=== PATIENT | female | born 1990 | race Caucasian/White ===

== ENCOUNTER 2021-03-11 20:05 | Emergency (ER) | payer MEDICAID, SELFPAY ==
[2021-03-11 20:07] VITALS: BP 96/64; PULSE 118; RESP 16; TEMP 36.9; O2SAT 100; BMI 20.5
[2021-03-11 21:25] LABS: Basophils # 0.1 K/mm3 (0-0.2); Basophils % 0.7 % (0.1-2.0); Eosinophils # 0.2 K/mm3 (0.0-0.4); Eosinophils % 2.9 % (0.1-12.0); Hematocrit 41.9 % (37.0-47.0); Hemoglobin 13.7 g/dL (12.2-16.2); Lymphocytes # 2.8 K/mm3 (0.7-4.5); Lymphocytes % 34.2 % (10-50); Mean Corpuscular HGB Conc 32.6 g/dL (31.8-35.4); Mean Corpuscular Hemoglobin 27.8 pg (27.0-31.2); Mean Corpuscular Volume 85.4 fl (81-99); Mean Platelet Volume 8.8 fl (7.4-10.4); Monocytes # 0.3 K/mm3 (0.1-1.0); Monocytes % 3.9 % (1.7-9.3); Neutrophils # 4.7 K/mm3 (1.8-7.8); Neutrophils % 58.4 % (37.0-80.0); Platelet Count 402 K/mm3 (142-424); Red Blood Count 4.91 M/mm3 (4.20-5.40); Red Cell Distribution Width 15.7 % (11.5-17.5)
[2021-03-11 21:37] LABS: Chloride 87 mmol/L (98-107); Potassium 3.9 mmoL/L (3.5-5.1); Sodium 138 mmol/L (136-145)
[2021-03-11 21:38] LABS: Microscopic, Urine URINE MICROSCOPIC (MICROSCOPIC)
[2021-03-11 21:39] LABS: Blood Urea Nitrogen 47 mg/dl (7-17); Creatinine Clearance Estimated 53 mL/min (50-200); Estimated Glomerular Filt Rate 48 ml/min (>60); GFR (African American) 58 ML/MIN (>60)
[2021-03-11 21:40] LABS: Alanine Aminotransferase 152 U/L (12-78); Albumin/Globulin Ratio 0.8 (1.1-1.8); Alkaline Phosphatase 376 U/L (38-126); Anion Gap 19.9 mEq/L (5-15); Aspartate Amino Transferase 145 U/L (14-36); Bilirubin,Total 0.6 mg/dl (0.2-1.3); Calcium 9.9 mg/dl (8.4-10.2); Carbon Dioxide 35 mmol/L (22.0-30.0); Glucose 93 mg/dl (74-100)
[2021-03-11 21:42] LABS: Appearance,Urine CLEAR (Clear); Bilirubin,Urine Negative (Negative); Blood, Urine Negative (Negative); Glucose,Urine (UA) Negative (Negative); Ketones,Urine TRACE (Negative); Leukocyte Esterase,Urine TRACE (Negative); Nitrate,Urine Negative (Negative); Protein,Urine 1+ (Negative); Specific Gravity, Urine 1.015 (1.005-1.030); Urobilinogen,Urine 0.2 EU/dl (0.2)
[2021-03-11 21:43] LABS: Urine Pregnancy, HCG Qual. Negative (Negative)
[2021-03-11 21:45] LABS: Color,Urine Amber (Yellow)
[2021-03-11 21:57] LABS: Bacteria,Urine 1+ /lpf; Mucus,Urine 1+ /lpf; RBC,Urine Occasional #/hpf (0-3)
[2021-03-11 22:13] VITALS: BP 107/75; PULSE 90; O2SAT 95
--- NOTE | 2021-03-11 22:42 | HMH.EDGENADL ---
ED Disposition Clinical Impression: Dehydration, Elevated liver enzymes Disposition: Home, Self-Care Condition on Discharge: Fair Additional Instructions: See your physician on Tuesday at [facility] as scheduled. A copy of your labs is being provided to you for follow-up. Referrals: Rojas Madden [Primary Care Provider] - - Critical Care Critical Care Time: No Attestation: On 03/11/21, the high probability of a clinically significant, sudden or life threatening deterioration of the following system(s) required my full and direct attention, intervention and personal management. The time I documented below is in addition to time spent performing reported procedures but includes the following listed in this critical care notation. Medical Decision Making - Medical Records Medical records reviewed: Yes: I reviewed the patient's medical records. MR Comment: Reviewed patient's most recent labs at [facility]. BUN and creatinine are elevated compared to her baseline as are liver enzymes. Chloride is low from baseline. - Rajendra Inquiry Pt receiving controlled substance: Yes Rajendra was queried for this patient: Yes Risks and benefits of using a controlled substance: were not discussed with pt by me Vital Signs: 03/11/21 20:07 03/11/21 22:13 Temperature 98.4 F Temperature Source Oral Pulse Rate 90 Pulse Rate [Right] 118 H Respiratory Rate 16 Blood Pressure 107/75 L Blood Pressure [Right Arm] 96/64 L Blood Pressure Mean [Right Arm] 74 Blood Pressure Source Automatic Cuff Blood Pressure Position Sitting 02 Sat by Pulse Oximetry 100 95 Oxygen Delivery Method Room Air - Lab Data Lab Results 03/11/21 21:00: Urine Color [place], Urine Appearance Clear, Urine pH 8.0, Ur Specific [place] 1.015, Urine Protein 1+, Urine Glucose (UA) Negative, Urine Ketones Trace, Urine Blood Negative, Urine Nitrate Negative, Urine Bilirubin Negative, Urine Urobilinogen 0.2, Ur Leukocyte Esterase Trace, Urine RBC Occasional, Urine WBC 3-5, Urine Bacteria 1+, Urine Mucus 1+ 03/11/21 21:00: WBC 8.0, RBC 4.91, Hgb 13.7, Hct 41.9, MCV 85.4, MCH 27.8, MCHC 32.6, RDW 15.7, Plt Count 402, MPV 8.8, Neut % (Auto) 58.4, Lymph % (Auto) 34.2, [place] % (Auto) 3.9, Eos % (Auto) 2.9, Baso % (Auto) 0.7, Neut # (Auto) 4.7, Lymph # (Auto) 2.8, [place] # (Auto) 0.3, Eos # (Auto) 0.2, Baso # (Auto) 0.1 03/11/21 21:00: Urine HCG, Qual Negative 03/11/21 21:00: Sodium 138, Potassium 3.9, Chloride 87 L, Carbon Dioxide 35 H, Anion Gap 19.9 H, BUN 47 H, Creatinine 1.30 H, Estimated Creat Clear 53, Estimated GFR 48 L, Est GFR ( Amer) 58 L, Glucose 93, Calcium 9.9, Total Bilirubin 0.6, AST 145 H, ALT 152 H, Alkaline Phosphatase 376 H, Total Protein 11.0 H, Albumin 5.0, Globulin 6.0 H, Albumin/Globulin Ratio 0.8 L 03/11/21 21:00: Lipase 290 03/11/21 21:00: Phosphorus 6.0 H, Magnesium 2.3 Result diagrams: 03/11/21 21:00 03/11/21 21:00 Orders (Tests/Meds): ED MEDICATIONS Generic Name Dose Route Start Last Admin Trade Name Freq PRN Reason Stop Dose Admin Sodium Chloride 1,000 mls @ 999 mls/hr 03/11/21 21:30 03/11/21 21:21 Sod Chlor 0.9% 1000ml Bag IV 03/11/21 22:30 999 mls/hr .Q1H1M EPIFANIO Administration Discontinued Medications Generic Name Dose Route Start Last Admin Trade Name Freq PRN Reason Stop Dose Admin Morphine Sulfate 2 mg 03/11/21 22:19 03/11/21 22:21 Morphine 2mg/Ml Syringe IV 03/11/21 22:20 2 mg ONCE ONE Administration Ondansetron HCl 4 mg 03/11/21 21:20 03/11/21 21:21 Ondansetron 4mg/2ml Vial IV 03/11/21 21:21 4 mg ONCE ONE Administration Sodium Chloride 1,000 ml 03/11/21 22:51 03/11/21 22:53 Sodium Chloride 0.9% 1000ml Bag IV 03/11/21 22:52 1,000 ml BOLUS ONE Administration - Reevaluation(s) Time: 00:50 Reevaluation #1: States she feels better and is ready to be discharged General Adult HPI - General Chief complaint: Nausea/Vomiting/Diarrhea State
[2021-03-11 23:06] LABS: Lipase 290 U/L (23-300); Magnesium 2.3 mg/dl (1.6-2.3)
[2021-03-12 00:55] VITALS: BP 128/67; PULSE 72; RESP 16; TEMP 37.2; O2SAT 99
== END 2021-03-12 00:58 | disposition home or self-care (01) ==
PROVIDERS: Emergency Provider Emergency Medicine; PCP Internal Medicine
DX: E86.0 Dehydration (principal); R94.5 Abnormal results of liver function studies; M54.5 Low back pain
CPT/HCPCS: 80053; 81001; 81025; 83690; 83735; 84100; 85025; 96365; 96366; 96375; 99283; J2405

== ENCOUNTER 2021-06-13 18:29 | Inpatient (IN) | payer MEDICAID, SELFPAY ==
[2021-06-13 18:30] VITALS: BP 124/69; PULSE 149; RESP 20; TEMP 37.4; O2SAT 96; BMI 20.3
--- NOTE | 2021-06-13 18:52 | HMH.EDGENADL ---
ED Disposition <KarinaHalie - Last Filed: 06/13/21 20:09> Condition on Discharge: Fair - Critical Care Critical Care Time: No <Denice Melton - Last Filed: 06/13/21 22:55> Clinical Impression: Intractable abdominal pain Disposition: Admitted As Inpatient Referrals: Rojas Madden [Primary Care Provider] - Attestation: On 06/13/21, the high probability of a clinically significant, sudden or life threatening deterioration of the following system(s) required my full and direct attention, intervention and personal management. The time I documented below is in addition to time spent performing reported procedures but includes the following listed in this critical care notation. Medical Decision Making - Medical Records Medical records reviewed: Yes: I reviewed the patient's medical records. - Rajendra Inquiry Pt receiving controlled substance: No - Lab Data Result diagrams: 06/13/21 18:55 06/13/21 18:55 <KarinaHalie - Last Filed: 06/13/21 20:09> - Lab Data Result diagrams: 06/13/21 18:55 06/13/21 18:55 <Denice Melton - Last Filed: 06/13/21 22:55> Vital Signs: 06/13/21 18:30 Temperature 99.4 F Temperature Source Oral Pulse Rate [Right Radial] 149 H Respiratory Rate 20 Blood Pressure [Right Arm] 124/69 Blood Pressure Mean [Right Arm] 87 Blood Pressure Source [Right Arm] Automatic Cuff Blood Pressure Position [Right Arm] Sitting 02 Sat by Pulse Oximetry 96 Oxygen Delivery Method Room Air - Lab Data Lab Results 06/13/21 18:55: WBC 6.6, RBC 3.38 L, Hgb 8.9 L, Hct 27.0 L, MCV 80.0 L, MCH 26.4 L, MCHC 33.0, RDW 15.7, Plt Count 137 L, MPV 8.8, Neut % (Auto) 92.3 H, Lymph % (Auto) 4.1 L, [place] % (Auto) 1.7, Eos % (Auto) 0.6, Baso % (Auto) 1.3, Neut # (Auto) 6.1, Lymph # (Auto) 0.3 L, [place] # (Auto) 0.1, Eos # (Auto) 0.0, Baso # (Auto) 0.1, Total Counted 100, Neutrophils % (Manual) 96 H, Lymphocytes % (Manual) 2 L, Monocytes % (Manual) 2, Platelet Estimate Slight decrease, Hypochromasia 1+, Microcytosis 1+ 06/13/21 18:55: Sodium 133 L, Potassium 3.1 L, Chloride 94 L, Carbon Dioxide 26, Anion Gap 16.1 H, BUN 29 H, Creatinine 1.20 H, Estimated Creat Clear 56, Estimated GFR 53 L, Est GFR ( Amer) 64, Glucose 97, Calcium 8.6, Total Bilirubin 0.6, AST 131 H, ALT 113 H, Alkaline Phosphatase 314 H, Total Protein 7.9 D, Albumin 4.2, Globulin 3.7 H, Albumin/Globulin Ratio 1.1 06/13/21 18:55: Serum HCG, Qual Negative 06/13/21 18:55: Lipase 75 06/13/21 19:40: Lactate 3.1 H 06/13/21 22:15: Urine Color Yellow, Urine Appearance Clear, Urine pH 8.5, Ur Specific [place] 1.010, Urine Protein Trace, Urine Glucose (UA) Negative, Urine Ketones Negative, Urine Blood Negative, Urine Nitrate Negative, Urine Bilirubin Negative, Urine Urobilinogen 0.2, Ur Leukocyte Esterase Negative, Urine WBC 5-10, Ur Renal Epithelial Cell 5-10, Amorphous Sediment Trace, Urine Mucus 1+ Orders (Tests/Meds): ED MEDICATIONS Generic Name Dose Route Start Last Admin Trade Name Freq PRN Reason Stop Dose Admin Lactated Ringer's 1,000 mls @ 999 mls/hr 06/13/21 19:30 Lactated Ringer's 1000 Ml Bag IV 06/13/21 20:30 .Q1H1M EPIFANIO Discontinued Medications Generic Name Dose Route Start Last Admin Trade Name Freq PRN Reason Stop Dose Admin Hydromorphone HCl 1 mg 06/13/21 22:41 Hydromorphone 2mg/Ml Syringe IV 06/13/21 22:42 ONCE ONE Iopamidol 75 ml 06/13/21 21:00 06/13/21 21:01 Iopamidol-370 (76%);100ml Bottle IV 06/13/21 21:01 75 ml ONCE ONE Administration Morphine Sulfate 2 mg 06/13/21 19:41 06/13/21 19:52 Morphine 2mg/Ml Syringe IV 06/13/21 19:42 2 mg ONCE ONE Administration Ondansetron HCl 4 mg 06/13/21 19:41 06/13/21 19:53 Ondansetron 4mg/2ml Vial IV 06/13/21 19:42 4 mg ONCE ONE Administration Potassium Chloride 40 meq 06/13/21 22:37 Potassium Chloride 20meq Tab PO 06/13/21 22:38 ONCE ONE Promethazine HCl 12.5 mg 06/13/21 22:41 Promethazine Hcl 25mg/Ml 1ml Via
--- NOTE | 2021-06-13 19:24 | CT_ITS ---
PROCEDURE INFORMATION: Exam: CT Abdomen And Pelvis With Contrast Exam date and time: 06/13/2021 7:24 PM Age: 30 years old Clinical indication: Abdominal pain; Generalized; Prior surgery; Surgery date: 6+ months; Surgery type: Large bowel removed and part of small bowel removed due to ulcerative colitis and a blood clot. Rectum removed gb; Additional info: Abdominal pain both flanks and generalized abdomen pain TECHNIQUE: Imaging protocol: Computed tomography of the abdomen and pelvis with contrast. Total images: 293 Radiation optimization: All CT scans at this facility use at least one of these dose optimization techniques: automated exposure control; mA and/or kV adjustment per patient size (includes targeted exams where dose is matched to clinical indication); or iterative reconstruction. Contrast material: ISOVUE; Contrast volume: 293 ml; Contrast route: IV; COMPARISON: No relevant prior studies available. FINDINGS: Tubes, catheters and devices: Central venous catheter in place with its tip in the right atrium. Lungs: Bandlike atelectasis in the right lung base. Heart: Heart size normal. Mediastinal space: The visualized distal esophagus is largely contracted without gross abnormality. Liver: Mild hepatomegaly measuring 19.3 cm craniocaudal. Normal contour. No mass lesions. Gallbladder and bile ducts: Prior cholecystectomy with no significant dilatation of the common bile duct. Pancreas: Normal. No inflammatory changes or ductal dilation. Spleen: Normal. No splenomegaly. Adrenal glands: Normal. No adrenal mass. Kidneys and ureters: No acute abnormalities. No hydronephrosis or hydroureter. No urinary tract stones are identified. Stomach and bowel: The stomach is largely contracted without gross abnormality. The small bowel is nondilated with no gross abnormality. Right lower quadrant ileostomy without gross complication. Prior colectomy. Appendix: The appendix is surgically absent. Intraperitoneal space: Minimal amount of intrapelvic free fluid, within physiologic range for a young woman. No free air. Vasculature: No acute process. No abdominal aortic aneurysm. Lymph nodes: Mildly enlarged lymph nodes in the left pericaval and aortocaval distribution measuring up to 8 mm short axis. These are nonspecific. Urinary bladder: Unremarkable as visualized. Reproductive: Unremarkable as visualized. Bones/joints: No acute osseous abnormalities. Soft tissues: Small subcutaneous soft tissue nodules in the left lower quadrant probably representing injection granulomata incidentally noted. IMPRESSION: 1. No definite acute process. 2. Prior colectomy. Right lower quadrant ileostomy without gross complication. No evidence of bowel obstruction or perforation. 3. Mild hepatomegaly. 4. Slightly enlarged periaortic nodes which are nonspecific in nature. 5. Minimal amount of intrapelvic free fluid, within physiologic range for a young woman. No free air. 6. Additional nonemergent findings detailed above.
[2021-06-13 19:25] LABS: Basophils # 0.1 K/mm3 (0-0.2); Basophils % 1.3 % (0.1-2.0); Eosinophils % 0.6 % (0.1-12.0); Hemoglobin 8.9 g/dL (12.2-16.2); Lymphocytes # 0.3 K/mm3 (0.7-4.5); Lymphocytes % 4.1 % (10-50); Mean Corpuscular Hemoglobin 26.4 pg (27.0-31.2); Mean Platelet Volume 8.8 fl (7.4-10.4); Monocytes # 0.1 K/mm3 (0.1-1.0); Monocytes % 1.7 % (1.7-9.3); Neutrophils # 6.1 K/mm3 (1.8-7.8); Neutrophils % 92.3 % (37.0-80.0); Platelet Count 137 K/mm3 (142-424); Red Blood Count 3.38 M/mm3 (4.20-5.40); Red Cell Distribution Width 15.7 % (11.5-17.5); White Blood Count 6.6 K/mm3 (4.8-10.8)
[2021-06-13 19:26] LABS: Chloride 94 mmol/L (98-107); Potassium 3.1 mmoL/L (3.5-5.1); Sodium 133 mmol/L (136-145)
[2021-06-13 19:28] LABS: Alanine Aminotransferase 113 U/L (12-78); Aspartate Amino Transferase 131 U/L (14-36); Blood Urea Nitrogen 29 mg/dl (7-17); Creatinine Clearance Estimated 56 mL/min (50-200); Estimated Glomerular Filt Rate 53 ml/min (>60); GFR (African American) 64 ML/MIN (>60)
[2021-06-13 19:29] LABS: Albumin Level 4.2 g/dl (3.5-5.0); Albumin/Globulin Ratio 1.1 (1.1-1.8); Alkaline Phosphatase 314 U/L (38-126); Anion Gap 16.1 mEq/L (5-15); Bilirubin,Total 0.6 mg/dl (0.2-1.3); Calcium 8.6 mg/dl (8.4-10.2); Carbon Dioxide 26 mmol/L (22.0-30.0); Globulin 3.7 g/dL (1.3-3.2); Glucose 97 mg/dl (74-100); Total Protein,Serum 7.9 g/dl (6.3-8.2)
[2021-06-13 19:35] LABS: MANUAL DIFFERENTIAL MANUAL DIFFERENTIAL (MANUAL DIFF)
[2021-06-13 19:44] LABS: HCG Qualitative, Serum Negative (Negative)
[2021-06-13 20:04] LABS: Lymphocytes % 2 % (10-50); Monocytes % 2 % (2-9); Neutrophils % 96 % (42-76); Total Cells Counted 100
[2021-06-13 20:05] LABS: Hypochromasia 1+; Microcytosis 1+; Platelet Estimate Slight Decrease
[2021-06-13 20:13] LABS: Lactic Acid 3.1 mmol/L (0.7-2.1)
[2021-06-13 20:30] LABS: Lipase 75 U/L (23-300)
--- NOTE | 2021-06-13 21:43 | PC.NURSE ---
sent patient to bathroom to obtain urine specimen. patient states unable to void. aware.
[2021-06-13 22:20] LABS: Microscopic, Urine URINE MICROSCOPIC (MICROSCOPIC)
[2021-06-13 22:23] LABS: Appearance,Urine CLEAR (Clear); Bilirubin,Urine Negative (Negative); Blood, Urine Negative (Negative); Color,Urine YELLOW (Yellow); Glucose,Urine (UA) Negative (Negative); Ketones,Urine Negative (Negative); Leukocyte Esterase,Urine Negative (Negative); Nitrate,Urine Negative (Negative); PH,Urine 8.5 (5.0-8.5); Protein,Urine TRACE (Negative); Urobilinogen,Urine 0.2 EU/dl (0.2)
[2021-06-13 22:25] LABS: Amorphous Sediment,Urine Trace /lpf; Mucus,Urine 1+ /lpf
[2021-06-13 22:49] LABS: Reflex Lactic Add Lactic Reflex
[2021-06-13 22:58] LABS: Coronavirus 19, PCR Not Detected (NotDetected); Influenza A, PCR Not Detected (NotDetected); Influenza B, PCR Not Detected (NotDetected)
[2021-06-13 23:02] LABS: Lactic Acid Follow Up (RFLX 1) 1.7 mmol/L (0.7-2.1)
[2021-06-13 23:04] VITALS: BMI 21.4
[2021-06-13 23:29] VITALS: BP 125/79; PULSE 101; RESP 18; TEMP 36.8; O2SAT 98
--- NOTE | 2021-06-13 23:56 | PC.NURSE ---
PT ARRIVED TO FLOOR VIA STRETCHER FROM ED W/STAFF [id number]
[2021-06-14] VITALS (7 sets, daily range): BP systolic 92–110; BP diastolic 60–65; PULSE 91–110; RESP 15–18; TEMP 36.8–37.7; O2SAT 95–100
--- NOTE | 2021-06-14 07:57 | P.HP_ITS ---
*Admission Date: 06/13/21 [facility] History *Have you ever received a pneumonia vaccine?: Yes *Have you received a flu vaccine this season?: Yes Other Surgeries: Yes: Cholecystectomy, Colon Resection, Colostomy, Other - *Social History Alcohol Intake: never *Occupational Status:: unemployed Household Members: family *Travel in the last 8 weeks: None Family Hx:: Cancer, Diabetes Meds Allergies Allergy/AdvReac Type Severity Reaction Status Date / Time ceftriaxone [From Rocephin] Allergy Verified 03/11/21 21:17 Exam Vital signs and Labs for Last 24 Hours: Temp Pulse Resp BP Pulse Ox 98.9 F 91 H 16 110/65 100 06/14/21 04:00 06/14/21 04:00 06/14/21 04:00 06/14/21 04:00 06/14/21 04:00 Laboratory Results - last 24 hr 06/13/21 18:55: WBC 6.6, RBC 3.38 L, Hgb 8.9 L, Hct 27.0 L, MCV 80.0 L, MCH 26.4 L, MCHC 33.0, RDW 15.7, Plt Count 137 L, MPV 8.8, Neut % (Auto) 92.3 H, Lymph % (Auto) 4.1 L, [place] % (Auto) 1.7, Eos % (Auto) 0.6, Baso % (Auto) 1.3, Neut # (Auto) 6.1, Lymph # (Auto) 0.3 L, [place] # (Auto) 0.1, Eos # (Auto) 0.0, Baso # (Auto) 0.1, Total Counted 100, Neutrophils % (Manual) 96 H, Lymphocytes % (Manual) 2 L, Monocytes % (Manual) 2, Platelet Estimate Slight decrease, Hypochromasia 1+, Microcytosis 1+ 06/13/21 18:55: Sodium 133 L, Potassium 3.1 L, Chloride 94 L, Carbon Dioxide 26, Anion Gap 16.1 H, BUN 29 H, Creatinine 1.20 H, Estimated Creat Clear 56, Estimated GFR 53 L, Est GFR ( Amer) 64, Glucose 97, Calcium 8.6, Total Bilirubin 0.6, AST 131 H, ALT 113 H, Alkaline Phosphatase 314 H, Total Protein 7.9 D, Albumin 4.2, Globulin 3.7 H, Albumin/Globulin Ratio 1.1 06/13/21 18:55: Serum HCG, Qual Negative 06/13/21 18:55: Lipase 75 06/13/21 19:40: Lactate 3.1 H 06/13/21 22:15: Urine Color Yellow, Urine Appearance Clear, Urine pH 8.5, Ur Specific [place] 1.010, Urine Protein Trace, Urine Glucose (UA) Negative, Urine Ketones Negative, Urine Blood Negative, Urine Nitrate Negative, Urine Bilirubin Negative, Urine Urobilinogen 0.2, Ur Leukocyte Esterase Negative, Urine WBC 5- 10, Ur Renal Epithelial Cell 5-10, Amorphous Sediment Trace, Urine Mucus 1+ 06/13/21 22:44: Lactate 1.7 06/13/21 22:54: SARS-CoV-2 (PCR) Not detected, Influenza A Untype (PCR) Not detected, Influenza Type B (PCR) Not detected I & O for Last 24 hours: Intake & Output 06/11/21 06/12/21 06/13/21 06/14/21 11:59 11:59 11:59 11:59 Intake Total 2250 / 2250 Output Total 0 / 0 Balance 2250 / 2250 Weight 121 lb
--- NOTE | 2021-06-14 09:19 | HMH.HP ---
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 She describes the pain as a dull pounding pain. It increased in intensity. She had vomiting. With oral intake she would develop bloating. Patient also noticed decreased output from her ileostomy. When pain became so severe she presented to the emergency department. Patient also reports having fever of 103. Patient recently was discharged from [facility] on 06/08 after a 5 day stay to rule out fungemia. Patient is on TPN and IV fluids at home due to her short gut syndrome. Patient was also recently found to have pancreatic tail lesion and is being referred to surgical oncology at This morning patient reports pain is better although not resolved. Per records patient takes oral morphine, loperamide, and iron supplement. This morning patient reports increase in output through ileostomy. [facility] History I have reviewed the patient's past medical history: Yes *Have you ever received a pneumonia vaccine?: Yes *Have you received a flu vaccine this season?: Yes Other Surgeries: Yes: Cholecystectomy, Colon Resection, Colostomy, Other - *Social History Smoking Status: Current every day smoker Alcohol Intake: never *Occupational Status:: unemployed Household Members: family *Travel in the last 8 weeks: None Family Hx:: Cancer, Diabetes Review of Systems - Constitutional Reports anorexia, Reports fever(s), Reports lack of energy, Denies body ache(s), Denies chills - Eyes Denies change in vision - ENT Denies abnormal hearing, Denies bleeding gums, Denies difficulty swallowing - *Cardiovascular Denies chest pain, Denies chest pain at rest, Denies shortness of breath with activity - *Respiratory Denies change in phlegm color, Denies chest congestion, Denies cough - *Gastrointestinal Reports abdominal pain, Reports bloating, Reports change in bowel habits, Reports change in stools, Reports heartburn, Denies belching, Denies coffee ground vomit - *Genitourinary Denies painful urination - *Musculoskeletal Denies joint pain Meds Allergies Allergy/AdvReac Type Severity Reaction Status Date / Time ceftriaxone [From Rocephin] Allergy Verified 03/11/21 21:17 Exam Vital signs and Labs for Last 24 Hours: Temp Pulse Resp BP Pulse Ox 98.9 F 91 H 16 110/65 100 06/14/21 04:00 06/14/21 04:00 06/14/21 04:00 06/14/21 04:00 06/14/21 04:00 Laboratory Results - last 24 hr 06/13/21 18:55: WBC 6.6, RBC 3.38 L, Hgb 8.9 L, Hct 27.0 L, MCV 80.0 L, MCH 26.4 L, MCHC 33.0, RDW 15.7, Plt Count 137 L, MPV 8.8, Neut % (Auto) 92.3 H, Lymph % (Auto) 4.1 L, [place] % (Auto) 1.7, Eos % (Auto) 0.6, Baso % (Auto) 1.3, Neut # (Auto) 6.1, Lymph # (Auto) 0.3 L, [place] # (Auto) 0.1, Eos # (Auto) 0.0, Baso # (Auto) 0.1, Total Counted 100, Neutrophils % (Manual) 96 H, Lymphocytes % (Manual) 2 L, Monocytes % (Manual) 2, Platelet Estimate Slight decrease, Hypochromasia 1+, Microcytosis 1+ 06/13/21 18:55: Sodium 133 L, Potassium 3.1 L, Chloride 94 L, Carbon Dioxide 26, Anion Gap 16.1 H, BUN 29 H, Creatinine 1.20 H, Estimated Creat Clear 56, Estimated GFR 53 L, Est GFR ( Amer) 64, Glucose 97, Calcium 8.6, Total Bilirubin 0.6, AST 131 H, ALT 113 H, Alkaline Phosphatase 314 H, Total Protein 7.9 D, Albumin 4.2, Globulin 3.7 H, Albumin/Globulin Ratio 1.1 06/13/21 18:55: Serum HCG, Qual Negative 06/13/21 18:55: Lipase 75 06/13/21 19:40: Lactate 3.1 H 06/13/21 22:15: Urine Color Yellow, Urine Appearance Clear, Urine pH 8.5, Ur Specific [place] 1.010, Urine Protein Trace, Urine Glucose (UA) Negative, Urine Ketones N
--- NOTE | 2021-06-14 09:31 | HMH.GSCON ---
*Admission Date: 06/13/21 *Reason for consult:: Intractable abdominal pain *History of present illness: Patient is a 30-year-old female who previously resided in [place] with a history of ulcerative colitis who underwent total colectomy in 2018. 1 year later she had issue with ischemic bowel requiring resection and has subsequently had a short gut syndrome requiring home TPN for the past 2 years. She does have a right-sided port in place and had a recent hospitalization at [facility] with fungal infection secondary to her line. In November of this year she underwent completion proctectomy at [facility] due to residual ulcerative colitis. She states that she did have a CT scan around that time which revealed a pancreatic lesion. This week, on 06/10/2021 she had undergone MRI of the pancreas at [facility] which reveals lesion in the tail of the pancreas concerning for neoplasm. Of note, the patient did have a history of pancreatitis when she had UC several years ago. She had developed onset of epigastric and left upper quadrant pain with some left flank pain described as a dull pounding sensation. She describes the pain as similar to previous bout of acute pancreatitis. She did have some vomiting as well as bloating and noted decreased output from her ileostomy. She was found to have a fever of 103. She was seen and evaluated in the emergency department. Laboratory studies showed some elevation of liver function tests and BUN and creatinine. CT scan with IV contrast revealed no acute findings. She was admitted for inpatient management due to her intractable pain and surgical consultation was obtained. Review of Systems - Review of Systems Review of systems:: pertinent systems reviewed and negative unless documented below - *Neurologic Denies abnormal hearing [facility] History I have reviewed the patient's past medical history: Yes *Have you ever received a pneumonia vaccine?: Yes *Have you received a flu vaccine this season?: Yes Other Surgeries: Yes: Cholecystectomy, Colon Resection, Colostomy, Other - *Social History Smoking Status: Smoker, status unknown Alcohol Intake: never *Occupational Status:: unemployed Household Members: family *Travel in the last 8 weeks: None Family Hx:: Cancer, Diabetes Meds Home Medications Medication Instructions Recorded Confirmed Type Enoxaparin Sodium [Lovenox 60 mg SQ BID 06/14/21 06/14/21 History 60mg/0.6mL syringe] Fat Emulsions [Liposyn 20% 250mL 250 ml IV QODHS 06/14/21 06/14/21 History bottle] Ferrous Sulfate [Ferrous Sulfate 325 mg PO DAILY 06/14/21 06/14/21 History 325mg Tablet] Gabapentin [Gabapentin 250mg/5ml 250 mg PO TID 06/14/21 06/14/21 History Oral Soln] Loperamide HCl [Anti-Diarrheal] 1 mg PO QIDP PRN 06/14/21 06/14/21 History Magnesium Oxide [Magnesium] 400 mg PO DAILY 06/14/21 06/14/21 History Morphine Sulfate [Morphine Sulfate 0.5 ml PO QIDP PRN 06/14/21 06/14/21 History 20mg/5ml Oral Soln (Roxanol)] Multivit-Minerals/Folic Acid 200 mcg PO DAILY 06/14/21 06/14/21 History [Multivitamin Gummies] Mvi, Adult No.1 with Vit K 10 ml IM DAILY 06/14/21 06/14/21 History [Multiple Vitamin Inj 10mL Vial] Naloxone HCl [Narcan] 1 spray NOSTRIL-B NEEDED PRN 06/14/21 06/14/21 History Potassium Chloride [Pot Chlor 20 40 meq PO BID 06/14/21 06/14/21 History mEq Packet] Allergies Allergy/AdvReac Type Severity Reaction Status Date / Time ceftriaxone [From Rocephin] Allergy Verified 03/11/21 21:17 Exam Vital signs and Labs for Last 24 Hours: Temp Pulse Resp BP Pulse Ox 100 F H 110 H 18 92/60 L 96 06/14/21 08:00 06/14/21 08:00 06/14/21 08:00 06/14/21 08:00 06/14/21 08:00 Laboratory Results - last 24 hr 06/13/21 18:55: WBC 6.6, RBC 3.38 L, Hgb 8.9 L, Hct 27.0 L, MCV 80.0 L, MCH 26.4 L, MCHC 33.0, RDW 15.7, Plt Count 137 L, MPV 8.8, Neut % (Auto) 92.3 H, Lymph % (Auto) 4.1 L, Mo
[2021-06-14 10:21] LABS: Basophils % 0.3 % (0.1-2.0); Eosinophils % 0.6 % (0.1-12.0); Hematocrit 23.6 % (37.0-47.0); Lymphocytes # 0.9 K/mm3 (0.7-4.5); Lymphocytes % 12.7 % (10-50); Mean Corpuscular HGB Conc 32.6 g/dL (31.8-35.4); Mean Corpuscular Hemoglobin 26.1 pg (27.0-31.2); Mean Corpuscular Volume 80.3 fl (81-99); Mean Platelet Volume 9.2 fl (7.4-10.4); Monocytes # 0.3 K/mm3 (0.1-1.0); Monocytes % 3.7 % (1.7-9.3); Neutrophils # 5.9 K/mm3 (1.8-7.8); Neutrophils % 82.7 % (37.0-80.0); Platelet Count 140 K/mm3 (142-424); Red Blood Count 2.94 M/mm3 (4.20-5.40); White Blood Count 7.2 K/mm3 (4.8-10.8)
[2021-06-14 10:23] LABS: Chloride 97 mmol/L (98-107)
[2021-06-14 10:24] LABS: Potassium 3.2 mmoL/L (3.5-5.1); Sodium 133 mmol/L (136-145)
[2021-06-14 10:26] LABS: Alanine Aminotransferase 84 U/L (12-78); Alkaline Phosphatase 236 U/L (38-126); Amylase 78 U/L (30-110); Anion Gap 11.2 mEq/L (5-15); Aspartate Amino Transferase 76 U/L (14-36); Bilirubin,Total 0.4 mg/dl (0.2-1.3); Blood Urea Nitrogen 24 mg/dl (7-17); Carbon Dioxide 28 mmol/L (22.0-30.0); Creatinine Clearance Estimated 71 mL/min (50-200); Estimated Glomerular Filt Rate 65 ml/min (>60); GFR (African American) 79 ML/MIN (>60)
[2021-06-14 10:27] LABS: Albumin Level 3.5 g/dl (3.5-5.0); Calcium 7.9 mg/dl (8.4-10.2); Globulin 3.4 g/dL (1.3-3.2); Glucose 88 mg/dl (74-100); Total Protein,Serum 6.9 g/dl (6.3-8.2)
[2021-06-14 10:30] LABS: Hemoglobin 7.7 g/dL (12.2-16.2)
--- NOTE | 2021-06-14 15:17 | P.CONPHA_ITS ---
[facility] Pharmacy VTE Monitoring - Patient Demographics Admission date: 06/14/21 Report Date: 06/14/21 Time: 15:17 Allergies/Adverse Reactions: Patient Allergies ceftriaxone [From Rocephin] Allergy (Verified 03/11/21 21:17) Height: 1.6 m Weight: 54.885 kg Patient Problems: Current Active Problems Elevated liver enzymes (Acute) Intractable abdominal pain (Acute) Abdominal pain, epigastric (Acute) Abdominal pain, left upper quadrant (Acute) Pancreatic mass (Acute) S/P total colectomy (Acute) Ileostomy in place (Acute) Hypokalemia (Acute) - VTE Risk Labs: VTE Related Lab Results Hgb 7.7 g/dL (12.2-16.2) L D 06/14/21 10:01 Hct 23.6 % (37.0-47.0) L 06/14/21 10:01 Plt Count 140 K/mm3 (142-424) L 06/14/21 10:01 BUN 24 mg/dl (7-17) H 06/14/21 10:01 Creatinine 1.00 mg/dl (0.52-1.04) 06/14/21 10:01 Estimated Creat Clear 71 mL/min (50-200) 06/14/21 10:01 Was VTE Risk Assessment Performed: Yes VTE Score: 4 VTE Risk Level: Low Risk - Prophylaxis Types of VTE Prophylaxis: Pharmacological Location of Applied Device: Not Applicable Pharmacologic Type: Enoxaparin (LOVENOX ORDERED)
--- NOTE | 2021-06-14 21:25 | PC.NURSE ---
REPORT RECEIVED FROM TANESHA OROZCO. PT ARRIVED TO THE UNIT PER BED. PT ORIENTED TO ROOM AND CALL LIGHT WITHIN REACH
[2021-06-14 22:21] LABS: Adenovirus F 40/41, stool Not Detected (NotDetected); Astrovirus Not Detected (NotDetected); Campylobacter Not Detected (NotDetected); Clostridium Difficile A/B, PCR Not Detected (NotDetected); Cryptosporidium Not Detected (NotDetected); Cyclospora Cayetanesis Not Detected (NotDetected); Entamoeba histolytica Not Detected (NotDetected); Enteroaggregative E coli Not Detected (NotDetected); Enteropathogenic E coli Not Detected (NotDetected); Enterotoxigenic E coli Not Detected (NotDetected); Giardia lamblia Not Detected (NotDetected); Norovirus Not Detected (NotDetected); Plesimonas Shigalloides, PCR Not Detected (NotDetected); Rotavirus A Not Detected (NotDetected); Salmonella, PCR Not Detected (NotDetected); Sapovirus Not Detected (NotDetected); Shiga-like toxin E coli Not Detected (NotDetected); Shigella Enterovasive E coli Not Detected (NotDetected); Vibrio Cholerae Not Detected (NotDetected); Vibrio, PCR Not Detected (NotDetected); Yersinia Entercolitica, PCR Not Detected (NotDetected)
[2021-06-15 04:00] VITALS: BP 90/50; PULSE 73; RESP 16; TEMP 36.8; O2SAT 96
[2021-06-15 04:15] VITALS: O2SAT 96
[2021-06-15 05:53] LABS: Eosinophils # 0.2 K/mm3 (0.0-0.4); Hemoglobin 7.7 g/dL (12.2-16.2); Monocytes # 0.3 K/mm3 (0.1-1.0); Neutrophils # 3.4 K/mm3 (1.8-7.8); Red Cell Distribution Width 15.9 % (11.5-17.5)
[2021-06-15 06:01] LABS: Basophils % 0.4 % (0.1-2.0); Eosinophils % 3.2 % (0.1-12.0); Hematocrit 23.9 % (37.0-47.0); Lymphocytes # 1.4 K/mm3 (0.7-4.5); Lymphocytes % 26.1 % (10-50); Mean Corpuscular Hemoglobin 26.1 pg (27.0-31.2); Mean Corpuscular Volume 81.5 fl (81-99); Mean Platelet Volume 8.8 fl (7.4-10.4); Monocytes % 5.6 % (1.7-9.3); Neutrophils % 64.7 % (37.0-80.0); Platelet Count 160 K/mm3 (142-424); Red Blood Count 2.94 M/mm3 (4.20-5.40); White Blood Count 5.2 K/mm3 (4.8-10.8)
[2021-06-15 06:12] LABS: Chloride 99 mmol/L (98-107); Potassium 3.7 mmoL/L (3.5-5.1); Sodium 134 mmol/L (136-145)
[2021-06-15 06:14] LABS: Blood Urea Nitrogen 22 mg/dl (7-17); Creatinine Clearance Estimated 79 mL/min (50-200); Estimated Glomerular Filt Rate 74 ml/min (>60); GFR (African American) 89 ML/MIN (>60)
--- NOTE | 2021-06-15 06:14 | HMH.ACPN2 ---
Internal Medicine - PN: Subj *Date: 06/15/21 *Time: 06:14 Interval history: Patient reports mild improvement in abdominal pain. She became nauseous with fluids. Ileostomy output has increased. Exam Vital signs and Labs for Last 24 Hours: Temp Pulse Resp BP Pulse Ox 98.2 F 73 16 90/50 L 96 06/15/21 04:00 06/15/21 04:00 06/15/21 04:00 06/15/21 04:00 06/15/21 04:15 Laboratory Results - last 24 hr 06/14/21 10:01: Amylase 78 06/14/21 10:01: WBC 7.2, RBC 2.94 L, Hgb 7.7 L D, Hct 23.6 L, MCV 80.3 L, MCH 26.1 L, MCHC 32.6, RDW 16.0, Plt Count 140 L, MPV 9.2, Neut % (Auto) 82.7 H, Lymph % (Auto) 12.7, [place] % (Auto) 3.7, Eos % (Auto) 0.6, Baso % (Auto) 0.3, Neut # (Auto) 5.9, Lymph # (Auto) 0.9, [place] # (Auto) 0.3, Eos # (Auto) 0.0, Baso # (Auto) 0.0 06/14/21 10:01: Sodium 133 L, Potassium 3.2 L, Chloride 97 L, Carbon Dioxide 28, Anion Gap 11.2, BUN 24 H, Creatinine 1.00, Estimated Creat Clear 71, Estimated GFR 65, Est GFR ( Amer) 79 D, Glucose 88, Calcium 7.9 L, Total Bilirubin 0.4, AST 76 H D, ALT 84 H D, Alkaline Phosphatase 236 H, Total Protein 6.9, Albumin 3.5 D, Globulin 3.4 H, Albumin/Globulin Ratio 1.0 L 06/14/21 22:00: Stl Aeromonas (PCR) Not detected, Stl C. cayetanensis PCR Not detected, Stool Rotavirus (PCR) Not detected, Stl Adenov F 40/41 PCR Not detected, Stool Astrovirus (PCR) Not detected, Stool Campylobacter PCR Not detected, Stl C.difficile Tox PCR Not detected, Stool Cryptosporidium PCR Not detected, Stl E.coli Shiga Tox PCR Not detected, Stool E coli O157 PCR Not detected, Stl Enterotoxigenic E PCR Not detected, Stool EPEC (PCR) Not detected, Stool EAEC (PCR) Not detected, Stl E. histolytica PCR Not detected, Stool Giardia Lamblia PCR Not detected, Stool Salmonella PCR Not detected, Stool Sapovirus (PCR) Not detected, Stl P. shigelloides PCR Not detected, Stl Shigella/EIEC PCR Not detected, St Y.enterocolitica PCR Not detected, Stool Vibrio (PCR) Not detected, Stl Vibrio cholerae PCR Not detected, Stl Norovirus GI/GII PCR Not detected 06/15/21 05:24: WBC 5.2 D, RBC 2.94 L, Hgb 7.7 L, Hct 23.9 L, MCV 81.5, MCH 26.1 L, MCHC 32.0, RDW 15.9, Plt Count 160, MPV 8.8, Neut % (Auto) 64.7, Lymph % (Auto) 26.1, [place] % (Auto) 5.6, Eos % (Auto) 3.2, Baso % (Auto) 0.4, Neut # (Auto) 3.4, Lymph # (Auto) 1.4, [place] # (Auto) 0.3, Eos # (Auto) 0.2, Baso # (Auto) 0.0 I & O for Last 24 hours: Intake & Output 06/12/21 06/13/21 06/14/21 06/15/21 11:59 11:59 11:59 11:59 Intake Total 2250 / 2250 300 / 300 Output Total 0 / 0 125 / 125 Balance 2250 / 2250 175 / 175 Weight 121 lb Microbiology Reports for the Last 24 Hours: Microbiology 06/13/21 22:15 Urine,Clean Catch Urine Culture - Preliminary NO GROWTH AFTER 24 HOURS Narrative: Patient is in no distress. Mildly pale. Oropharynx is moist. Lungs are clear. Heart has a regular rate and rhythm. Abdomen is soft with mild epigastric tenderness. Assessment and Plan (1) Abdominal pain, epigastric Status: Acute Category: Medical Code(s): R10.13 - Epigastric pain (2) Abdominal pain, left upper quadrant Status: Acute Category: Medical Code(s): R10.12 - Left upper quadrant pain (3) Pancreatic mass Status: Acute Category: Medical Code(s): K86.89 - Other specified diseases of pancreas (4) Elevated liver enzymes Status: Acute Category: Medical Code(s): R74.8 - Abnormal levels of other serum enzymes (5) S/P total colectomy Status: Acute Category: Surgical Code(s): Z90.49 - Acquired absence of other specified parts of digestive tract (6) Ileostomy in place Status: Acute Category: Medical Code(s): Z93.2 - Ileostomy status (7) Hypokalemia Status: Acute Category: Medical Code(s): E87.6 - Hypokalemia - Assessment and plan all Dx Assessment and Plan for all problems:: 1. Patient's anemia of chronic disease is stable. 2. Abdominal pain is improving. 3. DC Martinez cath
[2021-06-15 06:15] LABS: Alanine Aminotransferase 66 U/L (12-78); Albumin Level 3.5 g/dl (3.5-5.0); Alkaline Phosphatase 222 U/L (38-126); Anion Gap 10.7 mEq/L (5-15); Aspartate Amino Transferase 54 U/L (14-36); Bilirubin,Total 0.5 mg/dl (0.2-1.3); Calcium 8.4 mg/dl (8.4-10.2); Carbon Dioxide 28 mmol/L (22.0-30.0); Globulin 3.5 g/dL (1.3-3.2); Glucose 73 mg/dl (74-100)
--- NOTE | 2021-06-15 06:17 | HMH.DCSUM ---
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 She describes the pain as a dull pounding pain. It increased in intensity. She had vomiting. With oral intake she would develop bloating. Patient also noticed decreased output from her ileostomy. When pain became so severe she presented to the emergency department. Patient also reports having fever of 103. Patient recently was discharged from [facility] on 06/08 after a 5 day stay to rule out fungemia. Patient is on TPN and IV fluids at home due to her short gut syndrome. Patient was also recently found to have pancreatic tail lesion and is being referred to surgical oncology at This morning patient reports pain is better although not resolved. Per records patient takes oral morphine, loperamide, and iron supplement. This morning patient reports increase in output through ileostomy. Hospital Course Hospital Course: Patient was admitted for abdominal pain. She was ordered Dilaudid half milligram every 2 hours initially and once pain became better controlled transition to every 4 hours. The following morning of admission patient's diet was advanced to clear liquids. Patient was able to tolerate small amounts with some mild nausea but no increase in abdominal pain. Patient did not have any recurrence of bloating and her ileostomy output improved. Due to the complex nature of the patient's GI issues Dr. Hill was consulted for opinion on source of patient's abdominal pain. Patient has been identified as having a pancreatic tail mass. There is no blood in ileostomy output. Diarrhea PCR panel was performed and was negative. By the patient's abdominal pain had improved. Elevated liver function tests which were present on admission were resolving. Patient is chronically anemic and hemoglobin did drop slightly, likely from dilution. On June 15 patient was stable and improving. She was discharged home where she can resume TPN. There were no changes in her home medications Objective Vital signs: Temp Pulse Resp BP Pulse Ox 98.2 F 73 16 90/50 L 96 06/15/21 04:00 06/15/21 04:00 06/15/21 04:00 06/15/21 04:00 06/15/21 04:15 Results Labs on day of discharge: Labs from last 24 hours 06/15/21 06/15/21 06/14/21 05:24 05:24 22:00 WBC 5.2 D RBC 2.94 L Hgb 7.7 L Hct 23.9 L MCV 81.5 MCH 26.1 L MCHC 32.0 RDW 15.9 Plt Count 160 MPV 8.8 Neut % (Auto) 64.7 Lymph % (Auto) 26.1 [place] % (Auto) 5.6 Eos % (Auto) 3.2 Baso % (Auto) 0.4 Neut # (Auto) 3.4 Lymph # (Auto) 1.4 [place] # (Auto) 0.3 Eos # (Auto) 0.2 Baso # (Auto) 0.0 Sodium 134 L Potassium 3.7 Chloride 99 Carbon Dioxide 28 Anion Gap 10.7 BUN 22 H Creatinine 0.90 Estimated Creat Clear 79 Estimated GFR 74 Est GFR ( Amer) 89 Glucose Calcium Total Bilirubin 0.5 AST 54 H D ALT 66 Alkaline Phosphatase 222 H Total Protein 7.0 Albumin 3.5 Globulin 3.5 H Albumin/Globulin Ratio 1.0 L Amylase Stl Aeromonas (PCR) Not detected Stl C. cayetanensis PCR Not detected Stool Rotavirus (PCR) Not detected Stl Adenov F 40/41 PCR Not detected Stool Astrovirus (PCR) Not detected Stool Campylobacter PCR Not detected Stl C.difficile Tox PCR Not detected Stool Cryptosporidium PCR Not detected Stl E.coli Shiga Tox PCR Not detected Stool E coli O157 PCR Not detected Stl Enterotoxigenic E PCR Not detected Stool EPEC (PCR) Not detected Stool EAEC (PCR)
[2021-06-15 08:00] VITALS: BP 93/52; PULSE 70; RESP 16; TEMP 36.8; O2SAT 100
== END 2021-06-15 09:48 | disposition home or self-care (01) | DRG 440 ==
LOC: ER 19:06 → 2ND 22:55 → OB 06-14 20:27
PROVIDERS: Emergency Medicine; Surgery; Admitting Provider Family Medicine; Emergency Provider Emergency Medicine; PCP Internal Medicine; Visit Provider Family Medicine
DX: R10.9 Unspecified abdominal pain (principal); K86.89 Other specified diseases of pancreas; R10.13 Epigastric pain; R10.12 Left upper quadrant pain; Z93.2 Ileostomy status; E87.6 Hypokalemia; D64.9 Anemia, unspecified; Z90.49 Acquired absence of other specified parts of digestive tract; Z79.899 Other long term (current) drug therapy
CPT/HCPCS: 36415; 74177; 80053; 81001; 82150; 83605; 83690; 84703; 85007; 85025; 87086; 87507; 96365; 96366; 96375; 99283; C9803; J1642; J2405; Q9967; U0003; U0005

== ENCOUNTER → 2021-11-11 16:19 | Outpatient (CLI) | payer MEDICAID, SELFPAY ==
[2021-11-11 16:41] LABS: Basophils # 0.1 K/mm3 (0-0.2); Basophils % 0.9 % (0.1-2.0); Eosinophils # 0.3 K/mm3 (0.0-0.4); Eosinophils % 4.9 % (0.1-12.0); Hematocrit 31.6 % (37.0-47.0); Hemoglobin 10.3 g/dL (12.2-16.2); Lymphocytes # 2.2 K/mm3 (0.7-4.5); Lymphocytes % 42.4 % (10-50); Mean Corpuscular HGB Conc 32.4 g/dL (31.8-35.4); Mean Corpuscular Hemoglobin 26.4 pg (27.0-31.2); Mean Corpuscular Volume 81.4 fl (81-99); Mean Platelet Volume 8.8 fl (7.4-10.4); Monocytes # 0.2 K/mm3 (0.1-1.0); Monocytes % 3.7 % (1.7-9.3); Neutrophils # 2.5 K/mm3 (1.8-7.8); Neutrophils % 48.1 % (37.0-80.0); Platelet Count 216 K/mm3 (142-424); Red Blood Count 3.89 M/mm3 (4.20-5.40); Red Cell Distribution Width 19.4 % (11.5-17.5); White Blood Count 5.2 K/mm3 (4.8-10.8)
== END ==
PROVIDERS: Visit Provider Internal Medicine
DX: G89.28 Other chronic postprocedural pain (principal); B96.89 Other specified bacterial agents as the cause of diseases classified elsewhere
CPT/HCPCS: 85025

== ENCOUNTER → 2021-11-13 15:10 | Outpatient (CLI) | payer MEDICAID, SELFPAY ==
[2021-11-13 15:40] LABS: Basophils # 0.1 K/mm3 (0-0.2); Basophils % 1.9 % (0.1-2.0); Eosinophils # 0.1 K/mm3 (0.0-0.4); Eosinophils % 2.3 % (0.1-12.0); Hematocrit 36.6 % (37.0-47.0); Hemoglobin 11.9 g/dL (12.2-16.2); Lymphocytes # 2.3 K/mm3 (0.7-4.5); Lymphocytes % 39.1 % (10-50); Mean Corpuscular HGB Conc 32.6 g/dL (31.8-35.4); Mean Corpuscular Hemoglobin 26.1 pg (27.0-31.2); Mean Platelet Volume 9.3 fl (7.4-10.4); Monocytes # 0.3 K/mm3 (0.1-1.0); Monocytes % 4.4 % (1.7-9.3); Neutrophils # 3.2 K/mm3 (1.8-7.8); Neutrophils % 54.1 % (37.0-80.0); Platelet Count 267 K/mm3 (142-424); Red Blood Count 4.57 M/mm3 (4.20-5.40); White Blood Count 5.9 K/mm3 (4.8-10.8)
[2021-11-13 15:56] LABS: Potassium 3.8 mmoL/L (3.5-5.1)
[2021-11-13 15:59] LABS: Alanine Aminotransferase 69 U/L (12-78); Alkaline Phosphatase 406 U/L (38-126); Aspartate Amino Transferase 110 U/L (14-36); Bilirubin,Direct 0.2 mg/dl (0.0-0.4); Bilirubin,Indirect 0.6 mg/dL (0.0-0.9); Bilirubin,Total 0.8 mg/dl (0.2-1.3); Bilirubin,Unconjugated 0.6 mg/dL (0.0-1.1); Blood Urea Nitrogen 36 mg/dl (7-17); Estimated Glomerular Filt Rate 84 ml/min (>60); GFR (African American) 102 ML/MIN (>60); Magnesium 1.8 mg/dl (1.6-2.3)
[2021-11-13 16:00] LABS: Albumin Level 4.6 g/dl (3.5-5.0); Total Protein,Serum 9.3 g/dl (6.3-8.2)
[2021-11-13 16:16] LABS: C-Reactive Protein 0.4 mg/L (0-4)
== END ==
PROVIDERS: Visit Provider Internal Medicine
DX: K91.2 Postsurgical malabsorption, not elsewhere classified (principal); I26.90 Septic pulmonary embolism without acute cor pulmonale; B96.89 Other specified bacterial agents as the cause of diseases classified elsewhere
CPT/HCPCS: 80076; 82565; 83735; 84132; 84520; 85025; 86140

== ENCOUNTER → 2021-12-15 11:39 | Outpatient (CLI) | payer MEDICAID, SELFPAY ==
[2021-12-15 12:07] LABS: Basophils # 0.1 K/mm3 (0-0.2); Basophils % 1.8 % (0.1-2.0); Eosinophils # 0.2 K/mm3 (0.0-0.4); Eosinophils % 3.1 % (0.1-12.0); Hematocrit 31.1 % (37.0-47.0); Lymphocytes # 2.1 K/mm3 (0.7-4.5); Lymphocytes % 43.5 % (10-50); Mean Corpuscular HGB Conc 32.2 g/dL (31.8-35.4); Mean Corpuscular Hemoglobin 26.3 pg (27.0-31.2); Mean Corpuscular Volume 81.7 fl (81-99); Mean Platelet Volume 9.2 fl (7.4-10.4); Monocytes # 0.2 K/mm3 (0.1-1.0); Monocytes % 4.9 % (1.7-9.3); Neutrophils # 2.3 K/mm3 (1.8-7.8); Neutrophils % 46.7 % (37.0-80.0); Platelet Count 321 K/mm3 (142-424); Red Blood Count 3.81 M/mm3 (4.20-5.40); Red Cell Distribution Width 17.5 % (11.5-17.5); White Blood Count 4.8 K/mm3 (4.8-10.8)
[2021-12-15 12:14] LABS: Blood Urea Nitrogen 25 mg/dl (7-17); Estimated Glomerular Filt Rate 117 ml/min (>60); GFR (African American) 141 ML/MIN (>60)
[2021-12-15 12:15] LABS: Alanine Aminotransferase 38 U/L (12-78); Alkaline Phosphatase 284 U/L (38-126); Aspartate Amino Transferase 44 U/L (14-36); Bilirubin,Direct 0.2 mg/dl (0.0-0.4); Bilirubin,Indirect 0.5 mg/dL (0.0-0.9); Bilirubin,Total 0.7 mg/dl (0.2-1.3); Bilirubin,Unconjugated 0.4 mg/dL (0.0-1.1); Total Protein,Serum 7.9 g/dl (6.3-8.2)
[2021-12-15 12:21] LABS: C-Reactive Protein 1.2 mg/L (0-4)
== END ==
PROVIDERS: Physician Assistant Surgical; PCP Internal Medicine; Visit Provider Internal Medicine
DX: G89.28 Other chronic postprocedural pain (principal); B96.89 Other specified bacterial agents as the cause of diseases classified elsewhere
CPT/HCPCS: 80076; 82565; 84520; 85025; 86140

== ENCOUNTER → 2021-12-22 14:19 | Outpatient (CLI) | payer MEDICAID, SELFPAY ==
[2021-12-22 14:44] LABS: Basophils # 0.1 K/mm3 (0-0.2); Basophils % 1.3 % (0.1-2.0); Eosinophils # 0.1 K/mm3 (0.0-0.4); Eosinophils % 1.5 % (0.1-12.0); Hematocrit 33.7 % (37.0-47.0); Hemoglobin 10.5 g/dL (12.2-16.2); Lymphocytes # 2.1 K/mm3 (0.7-4.5); Lymphocytes % 41.1 % (10-50); Mean Corpuscular HGB Conc 31.2 g/dL (31.8-35.4); Mean Corpuscular Hemoglobin 25.8 pg (27.0-31.2); Mean Corpuscular Volume 82.8 fl (81-99); Mean Platelet Volume 8.5 fl (7.4-10.4); Monocytes # 0.2 K/mm3 (0.1-1.0); Monocytes % 3.7 % (1.7-9.3); Neutrophils # 2.7 K/mm3 (1.8-7.8); Neutrophils % 52.5 % (37.0-80.0); Platelet Count 390 K/mm3 (142-424); Red Blood Count 4.07 M/mm3 (4.20-5.40); Red Cell Distribution Width 16.8 % (11.5-17.5); White Blood Count 5.2 K/mm3 (4.8-10.8)
[2021-12-22 14:54] LABS: Alanine Aminotransferase 54 U/L (12-78); Aspartate Amino Transferase 71 U/L (14-36); Bilirubin,Unconjugated 0.4 mg/dL (0.0-1.1); Blood Urea Nitrogen 25 mg/dl (7-17); Estimated Glomerular Filt Rate 84 ml/min (>60); GFR (African American) 101 ML/MIN (>60)
[2021-12-22 14:55] LABS: Albumin Level 4.8 g/dl (3.5-5.0); Alkaline Phosphatase 306 U/L (38-126); Bilirubin,Direct 0.2 mg/dl (0.0-0.4); Bilirubin,Indirect 0.4 mg/dL (0.0-0.9); Bilirubin,Total 0.6 mg/dl (0.2-1.3); Total Protein,Serum 9.9 g/dl (6.3-8.2)
[2021-12-23 14:57] LABS: Alanine Aminotransferase 53 U/L (12-78); Albumin Level 4.5 g/dl (3.5-5.0); Alkaline Phosphatase 317 U/L (38-126); Anion Gap 15.4 mEq/L (5-15); Aspartate Amino Transferase 67 U/L (14-36); Bilirubin,Total 0.3 mg/dl (0.2-1.3); Blood Urea Nitrogen 26 mg/dl (7-17); Calcium 9.6 mg/dl (8.4-10.2); Carbon Dioxide 37 mmol/L (22.0-30.0); Chloride 89 mmol/L (98-107); Estimated Glomerular Filt Rate 84 ml/min (>60); GFR (African American) 101 ML/MIN (>60); Globulin 4.6 g/dL (1.3-3.2); Glucose 96 mg/dl (74-100); Magnesium 1.9 mg/dl (1.6-2.3); Potassium 3.4 mmoL/L (3.5-5.1); Sodium 138 mmol/L (136-145); Total Protein,Serum 9.1 g/dl (6.3-8.2); Triglycerides 181 mg/dl (30-150)
== END ==
PROVIDERS: Internal Medicine Gastroenterology; PCP Internal Medicine; Visit Provider Internal Medicine
DX: K81.2 Acute cholecystitis with chronic cholecystitis (principal); K51.90 Ulcerative colitis, unspecified, without complications
CPT/HCPCS: 80053; 80076; 82565; 83735; 84100; 84478; 84520; 85025; 86140

== ENCOUNTER → 2021-12-30 15:58 | Outpatient (CLI) | payer MEDICAID, SELFPAY ==
[2021-12-30 17:14] LABS: Basophils % 0.4 % (0.1-2.0); Eosinophils # 0.1 K/mm3 (0.0-0.4); Eosinophils % 2.8 % (0.1-12.0); Hematocrit 31.5 % (37.0-47.0); Hemoglobin 10.5 g/dL (12.2-16.2); Lymphocytes # 1.8 K/mm3 (0.7-4.5); Lymphocytes % 39.7 % (10-50); Mean Corpuscular HGB Conc 33.4 g/dL (31.8-35.4); Mean Corpuscular Hemoglobin 25.2 pg (27.0-31.2); Mean Corpuscular Volume 75.5 fl (81-99); Mean Platelet Volume 8.3 fl (7.4-10.4); Monocytes # 0.3 K/mm3 (0.1-1.0); Monocytes % 6.8 % (1.7-9.3); Neutrophils # 2.3 K/mm3 (1.8-7.8); Neutrophils % 50.2 % (37.0-80.0); Platelet Count 274 K/mm3 (142-424); Red Blood Count 4.17 M/mm3 (4.20-5.40); Red Cell Distribution Width 14.6 % (11.5-17.5); White Blood Count 4.5 K/mm3 (4.8-10.8)
[2021-12-30 17:34] LABS: Alanine Aminotransferase 44 U/L (12-78); Albumin Level 4.5 g/dl (3.5-5.0); Alkaline Phosphatase 254 U/L (38-126); Aspartate Amino Transferase 57 U/L (14-36); Bilirubin,Total 0.4 mg/dl (0.2-1.3); Blood Urea Nitrogen 29 mg/dl (7-17); Calcium 9.2 mg/dl (8.4-10.2); Chloride 85 mmol/L (98-107); Estimated Glomerular Filt Rate 98 ml/min (>60); GFR (African American) 118 ML/MIN (>60); Globulin 4.3 g/dL (1.3-3.2); Glucose 81 mg/dl (74-100); Magnesium 1.9 mg/dl (1.6-2.3); Phosphorous 3.7 mg/dl (2.5-4.5); Sodium 139 mmol/L (136-145); Total Protein,Serum 8.8 g/dl (6.3-8.2); Triglycerides 96 mg/dl (30-150)
[2021-12-30 17:40] LABS: Anion Gap 17.9 mEq/L (5-15); Carbon Dioxide 39 mmol/L (22.0-30.0)
[2021-12-30 17:55] LABS: Potassium 2.9 mmoL/L (3.5-5.1)
== END ==
PROVIDERS: Physician Assistant Surgical; PCP Internal Medicine; Visit Provider Internal Medicine
DX: E87.6 Hypokalemia; K51.90 Ulcerative colitis, unspecified, without complications; D64.9 Anemia, unspecified; D72.829 Elevated white blood cell count, unspecified; Z90.49 Acquired absence of other specified parts of digestive tract; Z93.2 Ileostomy status; Z79.899 Other long term (current) drug therapy
CPT/HCPCS: 80053; 83735; 84100; 84478; 85025

== ENCOUNTER → 2022-01-05 15:02 | Outpatient (CLI) | payer MEDICAID, SELFPAY ==
[2022-01-05 15:17] LABS: Basophils # 0.1 K/mm3 (0-0.2); Basophils % 1.7 % (0.1-2.0); Eosinophils # 0.1 K/mm3 (0.0-0.4); Eosinophils % 1.5 % (0.1-12.0); Hemoglobin 10.8 g/dL (12.2-16.2); Lymphocytes # 2.3 K/mm3 (0.7-4.5); Lymphocytes % 40.2 % (10-50); Mean Corpuscular HGB Conc 31.9 g/dL (31.8-35.4); Mean Corpuscular Hemoglobin 25.8 pg (27.0-31.2); Monocytes # 0.3 K/mm3 (0.1-1.0); Monocytes % 4.3 % (1.7-9.3); Neutrophils % 52.4 % (37.0-80.0); Platelet Count 279 K/mm3 (142-424); Red Cell Distribution Width 15.6 % (11.5-17.5); White Blood Count 5.8 K/mm3 (4.8-10.8)
[2022-01-05 15:28] LABS: Chloride 91 mmol/L (98-107); Sodium 136 mmol/L (136-145)
[2022-01-05 15:29] LABS: Potassium 3.5 mmoL/L (3.5-5.1)
[2022-01-05 15:31] LABS: Alanine Aminotransferase 68 U/L (12-78); Alkaline Phosphatase 257 U/L (38-126); Anion Gap 13.5 mEq/L (5-15); Aspartate Amino Transferase 75 U/L (14-36); Bilirubin,Total 0.7 mg/dl (0.2-1.3); Blood Urea Nitrogen 27 mg/dl (7-17); Carbon Dioxide 35 mmol/L (22.0-30.0); Estimated Glomerular Filt Rate 117 ml/min (>60); GFR (African American) 141 ML/MIN (>60); Phosphorous 4.2 mg/dl (2.5-4.5)
[2022-01-05 15:32] LABS: Albumin Level 4.6 g/dl (3.5-5.0); Albumin/Globulin Ratio 1.1 (1.1-1.8); Calcium 9.9 mg/dl (8.4-10.2); Globulin 4.1 g/dL (1.3-3.2); Glucose 109 mg/dl (74-100); Magnesium 1.7 mg/dl (1.6-2.3); Total Protein,Serum 8.7 g/dl (6.3-8.2); Triglycerides 109 mg/dl (30-150)
== END ==
PROVIDERS: Physician Assistant Surgical; PCP Internal Medicine; Visit Provider Internal Medicine
DX: K81.2 Acute cholecystitis with chronic cholecystitis (principal); K51.90 Ulcerative colitis, unspecified, without complications
CPT/HCPCS: 80053; 83735; 84100; 84478; 85025

== ENCOUNTER → 2022-01-13 15:11 | Outpatient (CLI) | payer MEDICAID, SELFPAY ==
[2022-01-13 16:36] LABS: Basophils % 0.6 % (0.1-2.0); Eosinophils # 0.2 K/mm3 (0.0-0.4); Eosinophils % 4.3 % (0.1-12.0); Hematocrit 30.2 % (37.0-47.0); Hemoglobin 10.1 g/dL (12.2-16.2); Lymphocytes # 1.9 K/mm3 (0.7-4.5); Lymphocytes % 38.1 % (10-50); Mean Corpuscular HGB Conc 33.5 g/dL (31.8-35.4); Mean Corpuscular Volume 77.7 fl (81-99); Mean Platelet Volume 8.8 fl (7.4-10.4); Monocytes # 0.2 K/mm3 (0.1-1.0); Neutrophils # 2.6 K/mm3 (1.8-7.8); Neutrophils % 52.9 % (37.0-80.0); Platelet Count 251 K/mm3 (142-424); Red Blood Count 3.89 M/mm3 (4.20-5.40); Red Cell Distribution Width 13.5 % (11.5-17.5); White Blood Count 4.9 K/mm3 (4.8-10.8)
[2022-01-13 17:42] LABS: Alanine Aminotransferase 74 U/L (12-78); Albumin Level 4.1 g/dl (3.5-5.0); Albumin/Globulin Ratio 1.1 (1.1-1.8); Alkaline Phosphatase 293 U/L (38-126); Anion Gap 14.7 mEq/L (5-15); Aspartate Amino Transferase 80 U/L (14-36); Bilirubin,Total 0.3 mg/dl (0.2-1.3); Blood Urea Nitrogen 24 mg/dl (7-17); Calcium 8.9 mg/dl (8.4-10.2); Carbon Dioxide 30 mmol/L (22.0-30.0); Chloride 95 mmol/L (98-107); Estimated Glomerular Filt Rate 117 ml/min (>60); GFR (African American) 141 ML/MIN (>60); Globulin 3.7 g/dL (1.3-3.2); Glucose 80 mg/dl (74-100); Magnesium 1.8 mg/dl (1.6-2.3); Phosphorous 4.8 mg/dl (2.5-4.5); Potassium 3.7 mmoL/L (3.5-5.1); Sodium 136 mmol/L (136-145); Total Protein,Serum 7.8 g/dl (6.3-8.2); Triglycerides 89 mg/dl (30-150)
== END ==
PROVIDERS: Physician Assistant Surgical; PCP Internal Medicine; Visit Provider Internal Medicine
DX: G89.28 Other chronic postprocedural pain (principal); B96.89 Other specified bacterial agents as the cause of diseases classified elsewhere
CPT/HCPCS: 80053; 83735; 84100; 84478; 85025

== ENCOUNTER → 2022-01-19 14:38 | Outpatient (CLI) | payer MEDICAID, SELFPAY ==
[2022-01-19 15:19] LABS: Basophils % 0.4 % (0.1-2.0); Eosinophils # 0.1 K/mm3 (0.0-0.4); Eosinophils % 2.9 % (0.1-12.0); Hematocrit 30.3 % (37.0-47.0); Hemoglobin 9.8 g/dL (12.2-16.2); Lymphocytes # 2.1 K/mm3 (0.7-4.5); Lymphocytes % 48.9 % (10-50); Mean Corpuscular HGB Conc 32.2 g/dL (31.8-35.4); Mean Corpuscular Hemoglobin 25.2 pg (27.0-31.2); Mean Corpuscular Volume 78.2 fl (81-99); Mean Platelet Volume 8.4 fl (7.4-10.4); Monocytes # 0.2 K/mm3 (0.1-1.0); Monocytes % 4.8 % (1.7-9.3); Neutrophils # 1.9 K/mm3 (1.8-7.8); Neutrophils % 43.1 % (37.0-80.0); Platelet Count 242 K/mm3 (142-424); Red Blood Count 3.88 M/mm3 (4.20-5.40); Red Cell Distribution Width 12.9 % (11.5-17.5); White Blood Count 4.4 K/mm3 (4.8-10.8)
[2022-01-19 15:28] LABS: Chloride 97 mmol/L (98-107)
[2022-01-19 15:29] LABS: Sodium 137 mmol/L (136-145)
[2022-01-19 15:30] LABS: Potassium 3.7 mmoL/L (3.5-5.1)
[2022-01-19 15:31] LABS: Alanine Aminotransferase 104 U/L (12-78); Albumin Level 4.1 g/dl (3.5-5.0); Albumin/Globulin Ratio 1.1 (1.1-1.8); Alkaline Phosphatase 251 U/L (38-126); Anion Gap 10.7 mEq/L (5-15); Aspartate Amino Transferase 92 U/L (14-36); Bilirubin,Total 0.5 mg/dl (0.2-1.3); Blood Urea Nitrogen 23 mg/dl (7-17); Calcium 9.4 mg/dl (8.4-10.2); Carbon Dioxide 33 mmol/L (22.0-30.0); Estimated Glomerular Filt Rate 98 ml/min (>60); GFR (African American) 118 ML/MIN (>60); Globulin 3.6 g/dL (1.3-3.2); Glucose 96 mg/dl (74-100); Phosphorous 3.9 mg/dl (2.5-4.5); Total Protein,Serum 7.7 g/dl (6.3-8.2)
[2022-01-19 15:32] LABS: Magnesium 1.8 mg/dl (1.6-2.3)
[2022-01-19 15:33] LABS: Triglycerides 78 mg/dl (30-150)
[2022-01-20 15:43] LABS: MANUAL DIFFERENTIAL MANUAL DIFFERENTIAL (MANUAL DIFF)
[2022-01-20 17:15] LABS: Eosinophils % 1 % (0-3); Lymphocytes % 53 % (10-50); Monocytes % 4 % (2-9); Neutrophils % 39 % (42-76); Total Cells Counted 100
[2022-01-20 17:16] LABS: Anisocytosis 1+; Burr Cells 1+; Hypochromasia 1+; Microcytosis 1+; Platelet Estimate Normal
== END ==
PROVIDERS: Physician Assistant Surgical; PCP Internal Medicine; Visit Provider Internal Medicine
DX: K51.90 Ulcerative colitis, unspecified, without complications (principal); K81.2 Acute cholecystitis with chronic cholecystitis; D72.829 Elevated white blood cell count, unspecified
CPT/HCPCS: 80053; 83735; 84100; 84478; 85007; 85025

== ENCOUNTER → 2022-01-26 12:07 | Outpatient (CLI) | payer MEDICAID, SELFPAY ==
[2022-01-26 12:32] LABS: Basophils % 0.6 % (0.1-2.0); Eosinophils # 0.1 K/mm3 (0.0-0.4); Eosinophils % 1.5 % (0.1-12.0); Hematocrit 33.1 % (37.0-47.0); Hemoglobin 10.2 g/dL (12.2-16.2); Lymphocytes # 1.5 K/mm3 (0.7-4.5); Lymphocytes % 40.5 % (10-50); Mean Corpuscular HGB Conc 30.8 g/dL (31.8-35.4); Mean Corpuscular Hemoglobin 24.8 pg (27.0-31.2); Mean Corpuscular Volume 80.6 fl (81-99); Mean Platelet Volume 9.1 fl (7.4-10.4); Monocytes # 0.4 K/mm3 (0.1-1.0); Monocytes % 9.7 % (1.7-9.3); Neutrophils # 1.8 K/mm3 (1.8-7.8); Neutrophils % 47.7 % (37.0-80.0); Platelet Count 218 K/mm3 (142-424); Red Blood Count 4.11 M/mm3 (4.20-5.40); Red Cell Distribution Width 14.2 % (11.5-17.5); White Blood Count 3.7 K/mm3 (4.8-10.8)
[2022-01-26 12:42] LABS: Alanine Aminotransferase 81 U/L (12-78); Albumin/Globulin Ratio 1.1 (1.1-1.8); Alkaline Phosphatase 379 U/L (38-126); Anion Gap 12.8 mEq/L (5-15); Aspartate Amino Transferase 75 U/L (14-36); Bilirubin,Total 0.3 mg/dl (0.2-1.3); Blood Urea Nitrogen 16 mg/dl (7-17); Calcium 8.8 mg/dl (8.4-10.2); Carbon Dioxide 25 mmol/L (22.0-30.0); Chloride 103 mmol/L (98-107); Estimated Glomerular Filt Rate 117 ml/min (>60); GFR (African American) 141 ML/MIN (>60); Globulin 3.6 g/dL (1.3-3.2); Glucose 92 mg/dl (74-100); Magnesium 1.7 mg/dl (1.6-2.3); Phosphorous 4.4 mg/dl (2.5-4.5); Potassium 3.8 mmoL/L (3.5-5.1); Sodium 137 mmol/L (136-145); Total Protein,Serum 7.6 g/dl (6.3-8.2); Triglycerides 116 mg/dl (30-150)
== END ==
PROVIDERS: PCP Internal Medicine; Visit Provider Internal Medicine
DX: K91.2 Postsurgical malabsorption, not elsewhere classified (principal); I26.90 Septic pulmonary embolism without acute cor pulmonale; B96.89 Other specified bacterial agents as the cause of diseases classified elsewhere
CPT/HCPCS: 80053; 83735; 84100; 84478; 85025

== ENCOUNTER → 2022-02-02 13:47 | Outpatient (CLI) | payer MEDICAID, SELFPAY ==
[2022-02-02 14:29] LABS: Basophils % 0.5 % (0.1-2.0); Eosinophils # 0.1 K/mm3 (0.0-0.4); Eosinophils % 0.8 % (0.1-12.0); Hematocrit 32.7 % (37.0-47.0); Hemoglobin 10.2 g/dL (12.2-16.2); Lymphocytes # 1.9 K/mm3 (0.7-4.5); Lymphocytes % 29.6 % (10-50); Mean Corpuscular HGB Conc 31.3 g/dL (31.8-35.4); Mean Corpuscular Hemoglobin 25.1 pg (27.0-31.2); Mean Platelet Volume 8.9 fl (7.4-10.4); Monocytes # 0.2 K/mm3 (0.1-1.0); Monocytes % 2.9 % (1.7-9.3); Neutrophils # 4.3 K/mm3 (1.8-7.8); Neutrophils % 66.2 % (37.0-80.0); Platelet Count 252 K/mm3 (142-424); Red Blood Count 4.08 M/mm3 (4.20-5.40); Red Cell Distribution Width 14.3 % (11.5-17.5); White Blood Count 6.5 K/mm3 (4.8-10.8)
[2022-02-02 14:37] LABS: Chloride 95 mmol/L (98-107); Sodium 138 mmol/L (136-145)
[2022-02-02 14:39] LABS: Blood Urea Nitrogen 23 mg/dl (7-17); Estimated Glomerular Filt Rate 98 ml/min (>60); GFR (African American) 118 ML/MIN (>60)
[2022-02-02 14:40] LABS: Alanine Aminotransferase 77 U/L (12-78); Albumin Level 4.6 g/dl (3.5-5.0); Albumin/Globulin Ratio 1.1 (1.1-1.8); Alkaline Phosphatase 324 U/L (38-126); Anion Gap 12.9 mEq/L (5-15); Aspartate Amino Transferase 81 U/L (14-36); Bilirubin,Total 0.3 mg/dl (0.2-1.3); Calcium 9.4 mg/dl (8.4-10.2); Carbon Dioxide 33 mmol/L (22.0-30.0); Globulin 4.1 g/dL (1.3-3.2); Glucose 96 mg/dl (74-100); Phosphorous 4.5 mg/dl (2.5-4.5); Total Protein,Serum 8.7 g/dl (6.3-8.2); Triglycerides 152 mg/dl (30-150)
[2022-02-02 14:56] LABS: Potassium 2.9 mmoL/L (3.5-5.1)
[2022-02-03 08:13] LABS: Magnesium 1.5 mg/dl (1.6-2.3)
== END ==
PROVIDERS: PCP Internal Medicine; Visit Provider Internal Medicine
DX: G89.29 Other chronic pain (principal); B96.89 Other specified bacterial agents as the cause of diseases classified elsewhere
CPT/HCPCS: 80053; 83735; 84100; 84478; 85025

== ENCOUNTER → 2022-02-05 14:48 | Outpatient (CLI) | payer MEDICAID, SELFPAY ==
[2022-02-05 16:48] LABS: Anion Gap 15.2 mEq/L (5-15); Blood Urea Nitrogen 27 mg/dl (7-17); Calcium 9.6 mg/dl (8.4-10.2); Carbon Dioxide 37 mmol/L (22.0-30.0); Chloride 90 mmol/L (98-107); Estimated Glomerular Filt Rate 98 ml/min (>60); GFR (African American) 118 ML/MIN (>60); Glucose 96 mg/dl (74-100); Potassium 3.2 mmoL/L (3.5-5.1); Sodium 139 mmol/L (136-145)
== END ==
PROVIDERS: PCP Internal Medicine; Visit Provider Internal Medicine
DX: E87.6 Hypokalemia (principal)
CPT/HCPCS: 80048

== ENCOUNTER → 2022-02-09 11:05 | Outpatient (CLI) | payer MEDICAID, SELFPAY ==
[2022-02-09 11:59] LABS: Basophils % 0.9 % (0.1-2.0); Eosinophils # 0.1 K/mm3 (0.0-0.4); Hematocrit 31.4 % (37.0-47.0); Hemoglobin 9.9 g/dL (12.2-16.2); Lymphocytes # 1.8 K/mm3 (0.7-4.5); Lymphocytes % 47.9 % (10-50); Mean Corpuscular HGB Conc 31.4 g/dL (31.8-35.4); Mean Corpuscular Hemoglobin 24.9 pg (27.0-31.2); Mean Corpuscular Volume 79.1 fl (81-99); Mean Platelet Volume 8.7 fl (7.4-10.4); Monocytes # 0.2 K/mm3 (0.1-1.0); Monocytes % 5.3 % (1.7-9.3); Neutrophils # 1.7 K/mm3 (1.8-7.8); Neutrophils % 43.9 % (37.0-80.0); Platelet Count 254 K/mm3 (142-424); Red Blood Count 3.96 M/mm3 (4.20-5.40); Red Cell Distribution Width 14.4 % (11.5-17.5); White Blood Count 3.8 K/mm3 (4.8-10.8)
[2022-02-09 12:00] LABS: Chloride 96 mmol/L (98-107)
[2022-02-09 12:01] LABS: Potassium 3.2 mmoL/L (3.5-5.1); Sodium 137 mmol/L (136-145)
[2022-02-09 12:03] LABS: Alanine Aminotransferase 58 U/L (12-78); Alkaline Phosphatase 272 U/L (38-126); Anion Gap 11.2 mEq/L (5-15); Aspartate Amino Transferase 60 U/L (14-36); Bilirubin,Total 0.4 mg/dl (0.2-1.3); Blood Urea Nitrogen 23 mg/dl (7-17); Carbon Dioxide 33 mmol/L (22.0-30.0); Estimated Glomerular Filt Rate 117 ml/min (>60); GFR (African American) 141 ML/MIN (>60)
[2022-02-09 12:04] LABS: Albumin Level 4.3 g/dl (3.5-5.0); Albumin/Globulin Ratio 1.1 (1.1-1.8); Calcium 9.1 mg/dl (8.4-10.2); Globulin 3.8 g/dL (1.3-3.2); Glucose 100 mg/dl (74-100); Phosphorous 4.1 mg/dl (2.5-4.5); Total Protein,Serum 8.1 g/dl (6.3-8.2); Triglycerides 79 mg/dl (30-150)
== END ==
PROVIDERS: PCP Internal Medicine; Visit Provider Internal Medicine
DX: G89.29 Other chronic pain (principal); B96.89 Other specified bacterial agents as the cause of diseases classified elsewhere; K86.89 Other specified diseases of pancreas
CPT/HCPCS: 80053; 83735; 84100; 84478; 85025

== ENCOUNTER → 2022-02-16 14:13 | Outpatient (CLI) | payer MEDICAID, SELFPAY ==
[2022-02-16 14:43] LABS: MANUAL DIFFERENTIAL MANUAL DIFFERENTIAL (MANUAL DIFF)
[2022-02-16 15:05] LABS: Chloride 103 mmol/L (98-107)
[2022-02-16 15:06] LABS: Potassium 3.8 mmoL/L (3.5-5.1); Sodium 140 mmol/L (136-145)
[2022-02-16 15:08] LABS: Alanine Aminotransferase 54 U/L (12-78); Alkaline Phosphatase 266 U/L (38-126); Anion Gap 11.8 mEq/L (5-15); Aspartate Amino Transferase 55 U/L (14-36); Bilirubin,Total 0.3 mg/dl (0.2-1.3); Blood Urea Nitrogen 21 mg/dl (7-17); Carbon Dioxide 29 mmol/L (22.0-30.0); Estimated Glomerular Filt Rate 117 ml/min (>60); GFR (African American) 141 ML/MIN (>60)
[2022-02-16 15:09] LABS: Albumin Level 3.9 g/dl (3.5-5.0); Albumin/Globulin Ratio 1.1 (1.1-1.8); Globulin 3.4 g/dL (1.3-3.2); Phosphorous 4.1 mg/dl (2.5-4.5); Total Protein,Serum 7.3 g/dl (6.3-8.2); Triglycerides 82 mg/dl (30-150)
[2022-02-16 15:14] LABS: Glucose 90 mg/dl (74-100)
[2022-02-16 15:15] LABS: Calcium 8.6 mg/dl (8.4-10.2)
[2022-02-16 15:17] LABS: Basophils % 0.5 % (0.1-2.0); Eosinophils # 0.1 K/mm3 (0.0-0.4); Eosinophils % 2.7 % (0.1-12.0); Hematocrit 29.3 % (37.0-47.0); Lymphocytes # 1.7 K/mm3 (0.7-4.5); Lymphocytes % 37.7 % (10-50); Mean Corpuscular HGB Conc 30.8 g/dL (31.8-35.4); Mean Corpuscular Hemoglobin 24.6 pg (27.0-31.2); Mean Corpuscular Volume 79.9 fl (81-99); Mean Platelet Volume 8.8 fl (7.4-10.4); Monocytes # 0.2 K/mm3 (0.1-1.0); Monocytes % 5.5 % (1.7-9.3); Neutrophils # 2.4 K/mm3 (1.8-7.8); Neutrophils % 53.6 % (37.0-80.0); Platelet Count 225 K/mm3 (142-424); Red Blood Count 3.66 M/mm3 (4.20-5.40); Red Cell Distribution Width 15.3 % (11.5-17.5); White Blood Count 4.4 K/mm3 (4.8-10.8)
[2022-02-16 20:47] LABS: Anisocytosis 1+; Hypochromasia 1+; Lymphocytes % 14 % (10-50); Monocytes % 5 % (2-9); Neutrophils % 81 % (42-76); Platelet Estimate Normal; Total Cells Counted 100
== END ==
PROVIDERS: Visit Provider Internal Medicine
DX: K91.2 Postsurgical malabsorption, not elsewhere classified (principal); I26.90 Septic pulmonary embolism without acute cor pulmonale; B96.89 Other specified bacterial agents as the cause of diseases classified elsewhere
CPT/HCPCS: 80053; 83735; 84100; 84478; 85007; 85014; 85018; 85048; 85049

== ENCOUNTER → 2022-02-24 13:12 | Outpatient (CLI) | payer MEDICAID, SELFPAY ==
[2022-02-24 14:43] LABS: Basophils % 0.5 % (0.1-2.0); Eosinophils # 0.1 K/mm3 (0.0-0.4); Eosinophils % 2.4 % (0.1-12.0); Hematocrit 32.1 % (37.0-47.0); Hemoglobin 9.8 g/dL (12.2-16.2); Lymphocytes # 1.1 K/mm3 (0.7-4.5); Mean Corpuscular HGB Conc 30.6 g/dL (31.8-35.4); Mean Corpuscular Hemoglobin 24.4 pg (27.0-31.2); Mean Corpuscular Volume 79.6 fl (81-99); Mean Platelet Volume 9.6 fl (7.4-10.4); Monocytes # 0.2 K/mm3 (0.1-1.0); Monocytes % 5.7 % (1.7-9.3); Neutrophils # 1.9 K/mm3 (1.8-7.8); Neutrophils % 58.4 % (37.0-80.0); Platelet Count 202 K/mm3 (142-424); Red Blood Count 4.04 M/mm3 (4.20-5.40); Red Cell Distribution Width 15.4 % (11.5-17.5); White Blood Count 3.2 K/mm3 (4.8-10.8)
[2022-02-24 15:17] LABS: Alanine Aminotransferase 64 U/L (12-78); Albumin Level 3.9 g/dl (3.5-5.0); Albumin/Globulin Ratio 1.1 (1.1-1.8); Alkaline Phosphatase 432 U/L (38-126); Anion Gap 15.1 mEq/L (5-15); Aspartate Amino Transferase 53 U/L (14-36); Bilirubin,Total 0.3 mg/dl (0.2-1.3); Blood Urea Nitrogen 18 mg/dl (7-17); Calcium 8.7 mg/dl (8.4-10.2); Carbon Dioxide 25 mmol/L (22.0-30.0); Chloride 103 mmol/L (98-107); Estimated Glomerular Filt Rate 117 ml/min (>60); GFR (African American) 141 ML/MIN (>60); Globulin 3.6 g/dL (1.3-3.2); Glucose 87 mg/dl (74-100); Magnesium 1.7 mg/dl (1.6-2.3); Phosphorous 4.1 mg/dl (2.5-4.5); Potassium 4.1 mmoL/L (3.5-5.1); Sodium 139 mmol/L (136-145); Total Protein,Serum 7.5 g/dl (6.3-8.2); Triglycerides 99 mg/dl (30-150)
== END ==
PROVIDERS: PCP Internal Medicine; Visit Provider Internal Medicine
DX: G89.28 Other chronic postprocedural pain (principal); B96.89 Other specified bacterial agents as the cause of diseases classified elsewhere
CPT/HCPCS: 80053; 83735; 84100; 84478; 85025

== ENCOUNTER → 2022-03-02 13:54 | Outpatient (CLI) | payer MEDICAID, SELFPAY ==
[2022-03-02 14:34] LABS: Basophils % 0.7 % (0.1-2.0); Eosinophils # 0.1 K/mm3 (0.0-0.4); Eosinophils % 2.2 % (0.1-12.0); Hemoglobin 9.5 g/dL (12.2-16.2); Lymphocytes # 2.2 K/mm3 (0.7-4.5); Lymphocytes % 41.2 % (10-50); Mean Corpuscular HGB Conc 31.6 g/dL (31.8-35.4); Mean Corpuscular Hemoglobin 24.2 pg (27.0-31.2); Mean Corpuscular Volume 76.6 fl (81-99); Mean Platelet Volume 9.1 fl (7.4-10.4); Monocytes # 0.2 K/mm3 (0.1-1.0); Monocytes % 4.5 % (1.7-9.3); Neutrophils # 2.7 K/mm3 (1.8-7.8); Neutrophils % 51.5 % (37.0-80.0); Platelet Count 276 K/mm3 (142-424); Red Blood Count 3.92 M/mm3 (4.20-5.40); Red Cell Distribution Width 15.4 % (11.5-17.5); White Blood Count 5.3 K/mm3 (4.8-10.8)
[2022-03-02 15:17] LABS: Alanine Aminotransferase 47 U/L (12-78); Albumin Level 4.1 g/dl (3.5-5.0); Albumin/Globulin Ratio 1.1 (1.1-1.8); Alkaline Phosphatase 462 U/L (38-126); Anion Gap 13.1 mEq/L (5-15); Aspartate Amino Transferase 45 U/L (14-36); Bilirubin,Total 0.2 mg/dl (0.2-1.3); Blood Urea Nitrogen 21 mg/dl (7-17); Carbon Dioxide 29 mmol/L (22.0-30.0); Chloride 101 mmol/L (98-107); Estimated Glomerular Filt Rate 98 ml/min (>60); GFR (African American) 118 ML/MIN (>60); Globulin 3.8 g/dL (1.3-3.2); Glucose 84 mg/dl (74-100); Magnesium 1.7 mg/dl (1.6-2.3); Phosphorous 4.4 mg/dl (2.5-4.5); Potassium 4.1 mmoL/L (3.5-5.1); Sodium 139 mmol/L (136-145); Total Protein,Serum 7.9 g/dl (6.3-8.2); Triglycerides 138 mg/dl (30-150)
== END ==
PROVIDERS: PCP Internal Medicine; Visit Provider Internal Medicine
DX: G89.28 Other chronic postprocedural pain (principal); B96.89 Other specified bacterial agents as the cause of diseases classified elsewhere
CPT/HCPCS: 80053; 83735; 84100; 84478; 85025

== ENCOUNTER → 2022-03-09 15:15 | Outpatient (CLI) | payer MEDICAID, SELFPAY ==
[2022-03-09 16:01] LABS: Basophils % 0.7 % (0.1-2.0); Eosinophils # 0.2 K/mm3 (0.0-0.4); Eosinophils % 4.8 % (0.1-12.0); Hematocrit 30.3 % (37.0-47.0); Hemoglobin 9.3 g/dL (12.2-16.2); Lymphocytes # 1.8 K/mm3 (0.7-4.5); Lymphocytes % 35.8 % (10-50); Mean Corpuscular HGB Conc 30.9 g/dL (31.8-35.4); Mean Corpuscular Hemoglobin 23.2 pg (27.0-31.2); Mean Corpuscular Volume 75.3 fl (81-99); Monocytes # 0.2 K/mm3 (0.1-1.0); Monocytes % 4.6 % (1.7-9.3); Neutrophils # 2.7 K/mm3 (1.8-7.8); Neutrophils % 54.1 % (37.0-80.0); Platelet Count 297 K/mm3 (142-424); Red Blood Count 4.02 M/mm3 (4.20-5.40); Red Cell Distribution Width 15.3 % (11.5-17.5)
[2022-03-09 16:13] LABS: Chloride 106 mmol/L (98-107)
[2022-03-09 16:14] LABS: Potassium 3.9 mmoL/L (3.5-5.1); Sodium 143 mmol/L (136-145)
[2022-03-09 16:16] LABS: Alanine Aminotransferase 41 U/L (12-78); Alkaline Phosphatase 458 U/L (38-126); Aspartate Amino Transferase 47 U/L (14-36); Bilirubin,Total 0.2 mg/dl (0.2-1.3); Blood Urea Nitrogen 18 mg/dl (7-17); Estimated Glomerular Filt Rate 98 ml/min (>60); GFR (African American) 118 ML/MIN (>60)
[2022-03-09 16:17] LABS: Albumin Level 4.1 g/dl (3.5-5.0); Anion Gap 13.9 mEq/L (5-15); Calcium 8.2 mg/dl (8.4-10.2); Carbon Dioxide 27 mmol/L (22.0-30.0); Glucose 101 mg/dl (74-100); Phosphorous 3.9 mg/dl (2.5-4.5); Total Protein,Serum 8.1 g/dl (6.3-8.2); Triglycerides 96 mg/dl (30-150)
== END ==
PROVIDERS: PCP Internal Medicine; Visit Provider Internal Medicine
DX: K86.89 Other specified diseases of pancreas (principal); G89.29 Other chronic pain; B96.89 Other specified bacterial agents as the cause of diseases classified elsewhere
CPT/HCPCS: 80053; 83735; 84100; 84478; 85025

== ENCOUNTER 2022-03-18 12:45 | Outpatient (CLI) | payer MEDICAID, SELFPAY ==
[2022-03-18 12:57] VITALS: BMI 21.2
[2022-03-18 13:20] LABS: Basophils # 0.1 K/mm3 (0-0.2); Basophils % 1.1 % (0.1-2.0); Eosinophils # 0.2 K/mm3 (0.0-0.4); Eosinophils % 3.7 % (0.1-12.0); Hematocrit 32.3 % (37.0-47.0); Lymphocytes # 1.5 K/mm3 (0.7-4.5); Mean Corpuscular Hemoglobin 23.4 pg (27.0-31.2); Mean Corpuscular Volume 75.5 fl (81-99); Mean Platelet Volume 8.8 fl (7.4-10.4); Monocytes # 0.3 K/mm3 (0.1-1.0); Neutrophils % 60.1 % (37.0-80.0); Platelet Count 225 K/mm3 (142-424); Red Blood Count 4.28 M/mm3 (4.20-5.40); Red Cell Distribution Width 16.1 % (11.5-17.5)
[2022-03-18 13:28] LABS: Blood Urea Nitrogen 20 mg/dl (7-17); Creatinine Clearance Estimated 117 mL/min (50-200); Estimated Glomerular Filt Rate 117 ml/min (>60); GFR (African American) 141 ML/MIN (>60)
[2022-03-18 13:34] LABS: C-Reactive Protein 22.5 mg/L (0-4)
[2022-03-18 14:04] LABS: Alanine Aminotransferase 29 U/L (12-78); Albumin Level 4.2 g/dl (3.5-5.0); Alkaline Phosphatase 466 U/L (38-126); Aspartate Amino Transferase 44 U/L (14-36); Bilirubin,Indirect 0.3 mg/dL (0.0-0.9); Bilirubin,Total 0.3 mg/dl (0.2-1.3); Bilirubin,Unconjugated 0.4 mg/dL (0.0-1.1); Total Protein,Serum 7.9 g/dl (6.3-8.2)
== END 2022-03-18 13:35 | disposition home or self-care (01) ==
LOC: INF 12:47
PROVIDERS: PCP Internal Medicine; Visit Provider Physician Assistant Surgical
DX: T80.219D Unspecified infection due to central venous catheter, subsequent encounter (principal)
CPT/HCPCS: 36592; 80076; 82565; 84520; 85025; 86140

== ENCOUNTER 2022-03-24 12:10 | Outpatient (CLI) | payer MEDICAID, SELFPAY ==
[2022-03-24 12:19] VITALS: BMI 21.2
[2022-03-24 12:45] LABS: Basophils # 0.1 K/mm3 (0-0.2); Basophils % 0.9 % (0.1-2.0); Eosinophils # 0.2 K/mm3 (0.0-0.4); Eosinophils % 2.8 % (0.1-12.0); Hematocrit 31.2 % (37.0-47.0); Hemoglobin 10.1 g/dL (12.2-16.2); Lymphocytes % 35.8 % (10-50); Mean Corpuscular HGB Conc 32.4 g/dL (31.8-35.4); Mean Corpuscular Hemoglobin 23.5 pg (27.0-31.2); Mean Corpuscular Volume 72.3 fl (81-99); Mean Platelet Volume 8.5 fl (7.4-10.4); Monocytes # 0.2 K/mm3 (0.1-1.0); Monocytes % 3.9 % (1.7-9.3); Neutrophils # 3.2 K/mm3 (1.8-7.8); Neutrophils % 56.6 % (37.0-80.0); Platelet Count 261 K/mm3 (142-424); Red Blood Count 4.32 M/mm3 (4.20-5.40); Red Cell Distribution Width 15.9 % (11.5-17.5); White Blood Count 5.7 K/mm3 (4.8-10.8)
[2022-03-24 12:48] LABS: Chloride 99 mmol/L (98-107)
[2022-03-24 12:49] LABS: Sodium 142 mmol/L (136-145)
[2022-03-24 12:51] LABS: Alanine Aminotransferase 47 U/L (12-78); Alkaline Phosphatase 417 U/L (38-126); Aspartate Amino Transferase 65 U/L (14-36); Bilirubin,Total 0.3 mg/dl (0.2-1.3); Blood Urea Nitrogen 24 mg/dl (7-17); Carbon Dioxide 30 mmol/L (22.0-30.0); Creatinine Clearance Estimated 100 mL/min (50-200); Estimated Glomerular Filt Rate 98 ml/min (>60); GFR (African American) 118 ML/MIN (>60)
[2022-03-24 12:52] LABS: Albumin Level 4.6 g/dl (3.5-5.0); Albumin/Globulin Ratio 1.1 (1.1-1.8); Calcium 8.8 mg/dl (8.4-10.2); Globulin 4.1 g/dL (1.3-3.2); Glucose 102 mg/dl (74-100); Total Protein,Serum 8.7 g/dl (6.3-8.2)
[2022-03-24 15:30] LABS: Phosphorous 3.7 mg/dl (2.5-4.5); Triglycerides 71 mg/dl (30-150)
[2022-03-25 09:26] LABS: Prealbumin 30 mg/dL (14-35)
== END 2022-03-24 12:45 | disposition home or self-care (01) ==
LOC: INF 12:12
PROVIDERS: PCP Internal Medicine
DX: Z45.2 Encounter for adjustment and management of vascular access device (principal); K51.019 Ulcerative (chronic) pancolitis with unspecified complications; K91.2 Postsurgical malabsorption, not elsewhere classified; Z78.9 Other specified health status
CPT/HCPCS: 36592; 80053; 83735; 84100; 84134; 84478; 85025

== ENCOUNTER 2022-03-30 12:02 | Outpatient (CLI) | payer MEDICAID, SELFPAY ==
[2022-03-30 12:07] VITALS: BMI 21.2
[2022-03-30 12:25] LABS: Basophils # 0.1 K/mm3 (0-0.2); Basophils % 1.5 % (0.1-2.0); Eosinophils # 0.2 K/mm3 (0.0-0.4); Eosinophils % 3.2 % (0.1-12.0); Hematocrit 30.2 % (37.0-47.0); Hemoglobin 9.6 g/dL (12.2-16.2); Lymphocytes # 2.3 K/mm3 (0.7-4.5); Lymphocytes % 36.3 % (10-50); Mean Corpuscular HGB Conc 31.9 g/dL (31.8-35.4); Mean Corpuscular Volume 75.1 fl (81-99); Mean Platelet Volume 8.8 fl (7.4-10.4); Monocytes # 0.3 K/mm3 (0.1-1.0); Monocytes % 4.8 % (1.7-9.3); Neutrophils # 3.4 K/mm3 (1.8-7.8); Neutrophils % 54.1 % (37.0-80.0); Platelet Count 227 K/mm3 (142-424); Red Blood Count 4.02 M/mm3 (4.20-5.40); Red Cell Distribution Width 16.6 % (11.5-17.5); White Blood Count 6.2 K/mm3 (4.8-10.8)
[2022-03-30 12:28] LABS: Chloride 100 mmol/L (98-107)
[2022-03-30 12:29] LABS: Potassium 3.8 mmoL/L (3.5-5.1); Sodium 141 mmol/L (136-145)
[2022-03-30 12:31] LABS: Alanine Aminotransferase 41 U/L (12-78); Anion Gap 15.8 mEq/L (5-15); Aspartate Amino Transferase 43 U/L (14-36); Blood Urea Nitrogen 18 mg/dl (7-17); Carbon Dioxide 29 mmol/L (22.0-30.0); Creatinine Clearance Estimated 117 mL/min (50-200); Estimated Glomerular Filt Rate 117 ml/min (>60); GFR (African American) 141 ML/MIN (>60)
[2022-03-30 12:32] LABS: Albumin Level 4.2 g/dl (3.5-5.0); Albumin/Globulin Ratio 1.1 (1.1-1.8); Alkaline Phosphatase 360 U/L (38-126); Bilirubin,Total 0.2 mg/dl (0.2-1.3); Calcium 8.6 mg/dl (8.4-10.2); Globulin 3.7 g/dL (1.3-3.2); Glucose 99 mg/dl (74-100); Magnesium 1.9 mg/dl (1.6-2.3); Phosphorous 3.8 mg/dl (2.5-4.5); Total Protein,Serum 7.9 g/dl (6.3-8.2); Triglycerides 72 mg/dl (30-150)
[2022-03-31 07:10] LABS: Prealbumin 23 mg/dL (14-35)
== END 2022-03-30 12:27 | disposition home or self-care (01) ==
LOC: INF 12:03
PROVIDERS: PCP Internal Medicine
DX: Z45.2 Encounter for adjustment and management of vascular access device (principal); K91.2 Postsurgical malabsorption, not elsewhere classified; K51.019 Ulcerative (chronic) pancolitis with unspecified complications; Z78.9 Other specified health status
CPT/HCPCS: 36592; 80053; 83735; 84100; 84134; 84478; 85025

== ENCOUNTER 2022-04-12 12:04 | Outpatient (CLI) | payer MEDICAID, SELFPAY ==
[2022-04-12 12:09] VITALS: BMI 21.2
[2022-04-12 12:26] LABS: Basophils # 0.1 K/mm3 (0-0.2); Basophils % 1.3 % (0.1-2.0); Eosinophils # 0.1 K/mm3 (0.0-0.4); Eosinophils % 1.2 % (0.1-12.0); Hematocrit 31.5 % (37.0-47.0); Hemoglobin 10.2 g/dL (12.2-16.2); Lymphocytes # 1.2 K/mm3 (0.7-4.5); Lymphocytes % 15.5 % (10-50); Mean Corpuscular HGB Conc 32.4 g/dL (31.8-35.4); Mean Corpuscular Hemoglobin 23.6 pg (27.0-31.2); Mean Corpuscular Volume 72.7 fl (81-99); Mean Platelet Volume 8.8 fl (7.4-10.4); Monocytes # 0.3 K/mm3 (0.1-1.0); Monocytes % 4.1 % (1.7-9.3); Neutrophils # 6.2 K/mm3 (1.8-7.8); Neutrophils % 77.9 % (37.0-80.0); Platelet Count 248 K/mm3 (142-424); Red Blood Count 4.33 M/mm3 (4.20-5.40); Red Cell Distribution Width 16.4 % (11.5-17.5); White Blood Count 7.9 K/mm3 (4.8-10.8)
[2022-04-12 12:33] LABS: Chloride 98 mmol/L (98-107); Potassium 3.6 mmoL/L (3.5-5.1); Sodium 138 mmol/L (136-145)
[2022-04-12 12:35] LABS: Alanine Aminotransferase 66 U/L (12-78); Aspartate Amino Transferase 78 U/L (14-36); Blood Urea Nitrogen 24 mg/dl (7-17); Creatinine Clearance Estimated 117 mL/min (50-200); Estimated Glomerular Filt Rate 117 ml/min (>60); GFR (African American) 141 ML/MIN (>60)
[2022-04-12 12:36] LABS: Albumin Level 4.5 g/dl (3.5-5.0); Albumin/Globulin Ratio 1.1 (1.1-1.8); Alkaline Phosphatase 464 U/L (38-126); Anion Gap 16.6 mEq/L (5-15); Bilirubin,Total 0.6 mg/dl (0.2-1.3); Calcium 8.4 mg/dl (8.4-10.2); Carbon Dioxide 27 mmol/L (22.0-30.0); Glucose 95 mg/dl (74-100); Magnesium 2.1 mg/dl (1.6-2.3); Phosphorous 3.9 mg/dl (2.5-4.5); Total Protein,Serum 8.5 g/dl (6.3-8.2); Triglycerides 124 mg/dl (30-150)
[2022-04-14 11:56] LABS: Prealbumin 33 mg/dL (14-35)
== END 2022-04-12 12:39 | disposition home or self-care (01) ==
LOC: INF 12:04
PROVIDERS: PCP Internal Medicine
DX: K51.019 Ulcerative (chronic) pancolitis with unspecified complications (principal); K91.2 Postsurgical malabsorption, not elsewhere classified; Z78.9 Other specified health status
CPT/HCPCS: 36592; 80053; 83735; 84100; 84134; 84478; 85025

== ENCOUNTER 2022-04-20 13:09 | Outpatient (CLI) | payer MEDICAID, SELFPAY ==
[2022-04-20 13:12] VITALS: BMI 21.2
[2022-04-20 13:32] LABS: Basophils % 0.4 % (0.1-2.0); Eosinophils # 0.1 K/mm3 (0.0-0.4); Eosinophils % 1.6 % (0.1-12.0); Hematocrit 29.1 % (37.0-47.0); Hemoglobin 9.3 g/dL (12.2-16.2); Lymphocytes # 1.4 K/mm3 (0.7-4.5); Mean Corpuscular HGB Conc 32.1 g/dL (31.8-35.4); Mean Corpuscular Hemoglobin 23.3 pg (27.0-31.2); Mean Corpuscular Volume 72.7 fl (81-99); Mean Platelet Volume 9.3 fl (7.4-10.4); Monocytes # 0.3 K/mm3 (0.1-1.0); Monocytes % 7.3 % (1.7-9.3); Neutrophils % 53.7 % (37.0-80.0); Platelet Count 194 K/mm3 (142-424); Red Blood Count 4.01 M/mm3 (4.20-5.40); Red Cell Distribution Width 16.7 % (11.5-17.5); White Blood Count 3.7 K/mm3 (4.8-10.8)
[2022-04-20 13:51] LABS: Chloride 101 mmol/L (98-107); Sodium 139 mmol/L (136-145)
[2022-04-20 13:52] LABS: Potassium 3.8 mmoL/L (3.5-5.1)
[2022-04-20 13:54] LABS: Alanine Aminotransferase 38 U/L (12-78); Albumin Level 4.1 g/dl (3.5-5.0); Alkaline Phosphatase 509 U/L (38-126); Anion Gap 16.8 mEq/L (5-15); Aspartate Amino Transferase 54 U/L (14-36); Bilirubin,Total 0.5 mg/dl (0.2-1.3); Blood Urea Nitrogen 16 mg/dl (7-17); Carbon Dioxide 25 mmol/L (22.0-30.0); Creatinine Clearance Estimated 140 mL/min (50-200); Estimated Glomerular Filt Rate 144 ml/min (>60); GFR (African American) 174 ML/MIN (>60); Globulin 3.9 g/dL (1.3-3.2)
[2022-04-20 13:55] LABS: Albumin/Globulin Ratio 1.1 (1.1-1.8); Calcium 8.5 mg/dl (8.4-10.2); Glucose 89 mg/dl (74-100); Magnesium 1.8 mg/dl (1.6-2.3); Triglycerides 95 mg/dl (30-150)
[2022-04-22 12:43] LABS: Prealbumin 24 mg/dL (14-35)
== END 2022-04-20 13:35 | disposition home or self-care (01) ==
LOC: INF 13:10
PROVIDERS: PCP Internal Medicine
DX: Z48.01 Encounter for change or removal of surgical wound dressing (principal); K51.019 Ulcerative (chronic) pancolitis with unspecified complications; K91.2 Postsurgical malabsorption, not elsewhere classified; Z78.9 Other specified health status
CPT/HCPCS: 36592; 80053; 83735; 84100; 84134; 84478; 85025

== ENCOUNTER 2022-05-04 12:58 | Outpatient (CLI) | payer MEDICAID, SELFPAY ==
[2022-05-04 13:06] VITALS: BMI 21.2
[2022-05-04 13:50] LABS: Chloride 100 mmol/L (98-107); Potassium 3.4 mmoL/L (3.5-5.1); Sodium 141 mmol/L (136-145)
[2022-05-04 13:52] LABS: Blood Urea Nitrogen 17 mg/dl (7-17); Magnesium 2.2 mg/dl (1.6-2.3); Phosphorous 3.2 mg/dl (2.5-4.5)
[2022-05-04 13:53] LABS: Alanine Aminotransferase 41 U/L (12-78); Albumin Level 4.1 g/dl (3.5-5.0); Albumin/Globulin Ratio 1.1 (1.1-1.8); Alkaline Phosphatase 474 U/L (38-126); Anion Gap 15.4 mEq/L (5-15); Aspartate Amino Transferase 51 U/L (14-36); Bilirubin,Total 0.5 mg/dl (0.2-1.3); Carbon Dioxide 29 mmol/L (22.0-30.0); Creatinine Clearance Estimated 117 mL/min (50-200); Estimated Glomerular Filt Rate 117 ml/min (>60); GFR (African American) 141 ML/MIN (>60); Globulin 3.9 g/dL (1.3-3.2); Glucose 112 mg/dl (74-100); Triglycerides 117 mg/dl (30-150)
[2022-05-04 14:04] LABS: Basophils % 0.5 % (0.1-2.0); Eosinophils % 0.6 % (0.1-12.0); Hematocrit 29.9 % (37.0-47.0); Hemoglobin 9.4 g/dL (12.2-16.2); Lymphocytes # 1.4 K/mm3 (0.7-4.5); Lymphocytes % 28.8 % (10-50); Mean Corpuscular HGB Conc 31.4 g/dL (31.8-35.4); Mean Corpuscular Hemoglobin 22.6 pg (27.0-31.2); Mean Corpuscular Volume 72.1 fl (81-99); Mean Platelet Volume 8.6 fl (7.4-10.4); Monocytes # 0.2 K/mm3 (0.1-1.0); Monocytes % 3.3 % (1.7-9.3); Neutrophils # 3.2 K/mm3 (1.8-7.8); Neutrophils % 66.7 % (37.0-80.0); Platelet Count 241 K/mm3 (142-424); Red Blood Count 4.14 M/mm3 (4.20-5.40); Red Cell Distribution Width 16.5 % (11.5-17.5); White Blood Count 4.8 K/mm3 (4.8-10.8)
[2022-05-06 08:19] LABS: Prealbumin 26 mg/dL (14-35)
== END 2022-05-04 13:30 | disposition home or self-care (01) ==
LOC: INF 12:59
PROVIDERS: PCP Internal Medicine; Visit Provider Internal Medicine
DX: K51.019 Ulcerative (chronic) pancolitis with unspecified complications (principal); K91.2 Postsurgical malabsorption, not elsewhere classified; Z78.9 Other specified health status
CPT/HCPCS: 36592; 80053; 83735; 84100; 84134; 84478; 85025

== ENCOUNTER 2022-05-14 09:53 | Outpatient (CLI) | payer MEDICAID, SELFPAY ==
[2022-05-14 09:59] VITALS: BMI 21.2
[2022-05-14 10:30] LABS: Basophils % 0.5 % (0.1-2.0); Eosinophils % 0.6 % (0.1-12.0); Hematocrit 29.9 % (37.0-47.0); Hemoglobin 9.3 g/dL (12.2-16.2); Lymphocytes # 1.8 K/mm3 (0.7-4.5); Lymphocytes % 44.5 % (10-50); Mean Corpuscular HGB Conc 31.3 g/dL (31.8-35.4); Mean Corpuscular Hemoglobin 22.2 pg (27.0-31.2); Mean Platelet Volume 9.6 fl (7.4-10.4); Monocytes # 0.3 K/mm3 (0.1-1.0); Monocytes % 6.2 % (1.7-9.3); Neutrophils % 48.1 % (37.0-80.0); Platelet Count 272 K/mm3 (142-424); Red Blood Count 4.21 M/mm3 (4.20-5.40); Red Cell Distribution Width 16.3 % (11.5-17.5)
[2022-05-14 10:41] LABS: Chloride 96 mmol/L (98-107); Sodium 138 mmol/L (136-145)
[2022-05-14 10:42] LABS: Potassium 3.6 mmoL/L (3.5-5.1)
[2022-05-14 10:44] LABS: Alanine Aminotransferase 34 U/L (12-78); Albumin Level 3.9 g/dl (3.5-5.0); Alkaline Phosphatase 405 U/L (38-126); Anion Gap 14.6 mEq/L (5-15); Aspartate Amino Transferase 44 U/L (14-36); Bilirubin,Total 0.4 mg/dl (0.2-1.3); Blood Urea Nitrogen 21 mg/dl (7-17); Carbon Dioxide 31 mmol/L (22.0-30.0); Creatinine Clearance Estimated 117 mL/min (50-200); Estimated Glomerular Filt Rate 117 ml/min (>60); GFR (African American) 141 ML/MIN (>60); Phosphorous 3.4 mg/dl (2.5-4.5); Total Protein,Serum 7.9 g/dl (6.3-8.2)
[2022-05-14 10:45] LABS: Calcium 8.8 mg/dl (8.4-10.2); Glucose 102 mg/dl (74-100); Magnesium 2.1 mg/dl (1.6-2.3); Triglycerides 101 mg/dl (30-150)
[2022-05-15 11:06] LABS: Prealbumin 23 mg/dL (14-35)
== END 2022-05-14 11:20 | disposition home or self-care (01) ==
LOC: INF 09:55
PROVIDERS: PCP Internal Medicine; Visit Provider Internal Medicine
DX: Z45.2 Encounter for adjustment and management of vascular access device (principal); Z78.9 Other specified health status; K91.2 Postsurgical malabsorption, not elsewhere classified; K51.019 Ulcerative (chronic) pancolitis with unspecified complications
CPT/HCPCS: 36592; 80053; 83735; 84100; 84134; 84478; 85025; 96374; 96375

== ENCOUNTER 2022-05-25 15:28 | Outpatient (CLI) | payer MEDICAID, SELFPAY ==
[2022-05-25 15:33] VITALS: BMI 21.2
[2022-05-25 15:52] LABS: Basophils # 0.1 K/mm3 (0-0.2); Basophils % 1.1 % (0.1-2.0); Eosinophils # 0.2 K/mm3 (0.0-0.4); Hemoglobin 9.4 g/dL (12.2-16.2); Lymphocytes # 1.6 K/mm3 (0.7-4.5); Lymphocytes % 19.5 % (10-50); Mean Corpuscular HGB Conc 31.2 g/dL (31.8-35.4); Mean Corpuscular Hemoglobin 22.4 pg (27.0-31.2); Mean Corpuscular Volume 71.6 fl (81-99); Mean Platelet Volume 8.6 fl (7.4-10.4); Monocytes # 0.2 K/mm3 (0.1-1.0); Monocytes % 2.4 % (1.7-9.3); Neutrophils # 6.2 K/mm3 (1.8-7.8); Platelet Count 297 K/mm3 (142-424); Red Blood Count 4.19 M/mm3 (4.20-5.40); Red Cell Distribution Width 16.4 % (11.5-17.5); White Blood Count 8.3 K/mm3 (4.8-10.8)
[2022-05-25 16:02] LABS: Chloride 98 mmol/L (98-107); Potassium 3.6 mmoL/L (3.5-5.1); Sodium 139 mmol/L (136-145)
[2022-05-25 16:04] LABS: Alanine Aminotransferase 38 U/L (12-78); Alkaline Phosphatase 436 U/L (38-126); Aspartate Amino Transferase 47 U/L (14-36); Bilirubin,Total 0.3 mg/dl (0.2-1.3); Blood Urea Nitrogen 21 mg/dl (7-17); Creatinine Clearance Estimated 117 mL/min (50-200); Estimated Glomerular Filt Rate 117 ml/min (>60); GFR (African American) 141 ML/MIN (>60)
[2022-05-25 16:05] LABS: Albumin Level 3.9 g/dl (3.5-5.0); Anion Gap 13.6 mEq/L (5-15); Carbon Dioxide 31 mmol/L (22.0-30.0); Globulin 4.1 g/dL (1.3-3.2); Glucose 88 mg/dl (74-100); Magnesium 1.9 mg/dl (1.6-2.3); Phosphorous 4.4 mg/dl (2.5-4.5); Triglycerides 107 mg/dl (30-150)
[2022-05-27 12:49] LABS: Prealbumin 26 mg/dL (14-35)
== END 2022-05-25 15:45 | disposition home or self-care (01) ==
LOC: INF 15:28
PROVIDERS: PCP Internal Medicine; Visit Provider Internal Medicine
DX: K91.2 Postsurgical malabsorption, not elsewhere classified (principal); Z78.9 Other specified health status; Z45.2 Encounter for adjustment and management of vascular access device
CPT/HCPCS: 36592; 80053; 83735; 84100; 84134; 84478; 85025

== ENCOUNTER 2022-06-01 15:25 | Outpatient (CLI) | payer MEDICAID, SELFPAY ==
[2022-06-01 15:28] VITALS: BMI 21.2
[2022-06-01 16:01] LABS: Basophils % 0.6 % (0.1-2.0); Eosinophils # 0.1 K/mm3 (0.0-0.4); Eosinophils % 2.5 % (0.1-12.0); Hematocrit 27.2 % (37.0-47.0); Hemoglobin 8.5 g/dL (12.2-16.2); Lymphocytes # 1.7 K/mm3 (0.7-4.5); Lymphocytes % 40.8 % (10-50); Mean Corpuscular HGB Conc 31.3 g/dL (31.8-35.4); Mean Corpuscular Hemoglobin 22.2 pg (27.0-31.2); Mean Corpuscular Volume 70.9 fl (81-99); Mean Platelet Volume 9.2 fl (7.4-10.4); Monocytes # 0.4 K/mm3 (0.1-1.0); Monocytes % 10.3 % (1.7-9.3); Neutrophils # 1.9 K/mm3 (1.8-7.8); Neutrophils % 45.9 % (37.0-80.0); Platelet Count 214 K/mm3 (142-424); Red Blood Count 3.84 M/mm3 (4.20-5.40); Red Cell Distribution Width 16.5 % (11.5-17.5); White Blood Count 4.1 K/mm3 (4.8-10.8)
[2022-06-01 16:52] LABS: Chloride 100 mmol/L (98-107)
[2022-06-01 16:53] LABS: Potassium 3.4 mmoL/L (3.5-5.1); Sodium 136 mmol/L (136-145)
[2022-06-01 16:55] LABS: Alanine Aminotransferase 40 U/L (12-78); Albumin Level 3.6 g/dl (3.5-5.0); Albumin/Globulin Ratio 0.9 (1.1-1.8); Alkaline Phosphatase 441 U/L (38-126); Anion Gap 7.4 mEq/L (5-15); Aspartate Amino Transferase 45 U/L (14-36); Bilirubin,Total 0.3 mg/dl (0.2-1.3); Blood Urea Nitrogen 24 mg/dl (7-17); Carbon Dioxide 32 mmol/L (22.0-30.0); Creatinine Clearance Estimated 100 mL/min (50-200); Estimated Glomerular Filt Rate 98 ml/min (>60); GFR (African American) 118 ML/MIN (>60); Globulin 3.9 g/dL (1.3-3.2); Total Protein,Serum 7.5 g/dl (6.3-8.2)
[2022-06-01 16:56] LABS: Calcium 8.6 mg/dl (8.4-10.2); Glucose 90 mg/dl (74-100)
[2022-06-01 17:19] LABS: Magnesium 2.2 mg/dl (1.6-2.3); Phosphorous 3.5 mg/dl (2.5-4.5); Triglycerides 108 mg/dl (30-150)
[2022-06-03 12:36] LABS: Prealbumin 21 mg/dL (14-35)
== END 2022-06-01 16:20 | disposition home or self-care (01) ==
LOC: INF 15:28
PROVIDERS: PCP Internal Medicine; Visit Provider Internal Medicine
DX: Z45.2 Encounter for adjustment and management of vascular access device (principal); K51.019 Ulcerative (chronic) pancolitis with unspecified complications; K91.2 Postsurgical malabsorption, not elsewhere classified; Z78.9 Other specified health status
CPT/HCPCS: 36592; 80053; 83735; 84100; 84134; 84478; 85025

== ENCOUNTER 2022-06-24 12:44 | Outpatient (CLI) | payer MEDICAID, SELFPAY ==
[2022-06-24 12:49] VITALS: BMI 21.2
[2022-06-24 13:22] LABS: Basophils % 0.6 % (0.1-2.0); Eosinophils # 0.1 K/mm3 (0.0-0.4); Eosinophils % 1.3 % (0.1-12.0); Hematocrit 28.7 % (37.0-47.0); Hemoglobin 9.1 g/dL (12.2-16.2); Lymphocytes # 2.3 K/mm3 (0.7-4.5); Lymphocytes % 42.8 % (10-50); Mean Corpuscular HGB Conc 31.7 g/dL (31.8-35.4); Mean Corpuscular Hemoglobin 22.5 pg (27.0-31.2); Mean Corpuscular Volume 71.2 fl (81-99); Mean Platelet Volume 8.4 fl (7.4-10.4); Monocytes # 0.1 K/mm3 (0.1-1.0); Monocytes % 2.7 % (1.7-9.3); Neutrophils # 2.8 K/mm3 (1.8-7.8); Neutrophils % 52.6 % (37.0-80.0); Platelet Count 259 K/mm3 (142-424); Red Blood Count 4.03 M/mm3 (4.20-5.40); Red Cell Distribution Width 16.8 % (11.5-17.5); White Blood Count 5.3 K/mm3 (4.8-10.8)
[2022-06-24 13:29] LABS: Chloride 101 mmol/L (98-107)
[2022-06-24 13:30] LABS: Potassium 3.8 mmoL/L (3.5-5.1); Sodium 137 mmol/L (136-145)
[2022-06-24 13:32] LABS: Alanine Aminotransferase 34 U/L (12-78); Aspartate Amino Transferase 50 U/L (14-36); Blood Urea Nitrogen 23 mg/dl (7-17); Creatinine Clearance Estimated 117 mL/min (50-200); Estimated Glomerular Filt Rate 117 ml/min (>60); GFR (African American) 141 ML/MIN (>60)
[2022-06-24 13:33] LABS: Albumin/Globulin Ratio 1.1 (1.1-1.8); Alkaline Phosphatase 313 U/L (38-126); Anion Gap 11.8 mEq/L (5-15); Bilirubin,Total 0.6 mg/dl (0.2-1.3); Calcium 8.4 mg/dl (8.4-10.2); Carbon Dioxide 28 mmol/L (22.0-30.0); Globulin 3.8 g/dL (1.3-3.2); Glucose 86 mg/dl (74-100); Magnesium 2.1 mg/dl (1.6-2.3); Total Protein,Serum 7.8 g/dl (6.3-8.2)
[2022-06-24 13:53] LABS: Phosphorous 4.1 mg/dl (2.5-4.5); Triglycerides 125 mg/dl (30-150)
[2022-06-25 06:07] LABS: Prealbumin 30 mg/dL (14-35)
== END 2022-06-24 13:20 | disposition home or self-care (01) ==
LOC: INF 12:44
PROVIDERS: PCP Internal Medicine; Visit Provider Internal Medicine
DX: Z45.2 Encounter for adjustment and management of vascular access device (principal); K51.019 Ulcerative (chronic) pancolitis with unspecified complications; K91.2 Postsurgical malabsorption, not elsewhere classified; Z78.9 Other specified health status
CPT/HCPCS: 36592; 80053; 83735; 84100; 84134; 84478; 85025

== ENCOUNTER 2022-08-27 10:32 | Outpatient (CLI) | payer MEDICAID, SELFPAY ==
[2022-08-27 10:39] VITALS: BMI 20.3
[2022-08-27 10:57] LABS: Basophils % 0.1 % (0.1-2.0); Eosinophils # 0.2 K/mm3 (0.0-0.4); Eosinophils % 3.5 % (0.1-12.0); Hematocrit 28.6 % (37.0-47.0); Hemoglobin 9.5 g/dL (12.2-16.2); Lymphocytes # 0.5 K/mm3 (0.7-4.5); Lymphocytes % 7.9 % (10-50); Mean Corpuscular HGB Conc 33.2 g/dL (31.8-35.4); Mean Corpuscular Hemoglobin 23.6 pg (27.0-31.2); Mean Platelet Volume 8.4 fl (7.4-10.4); Monocytes % 0.5 % (1.7-9.3); Neutrophils % 87.9 % (37.0-80.0); Platelet Count 172 K/mm3 (142-424); Red Blood Count 4.03 M/mm3 (4.20-5.40); Red Cell Distribution Width 17.3 % (11.5-17.5); White Blood Count 6.8 K/mm3 (4.8-10.8)
[2022-08-27 11:00] LABS: MANUAL DIFFERENTIAL MANUAL DIFFERENTIAL (MANUAL DIFF)
[2022-08-27 11:10] LABS: Chloride 101 mmol/L (98-107); Potassium 3.7 mmoL/L (3.5-5.1); Sodium 133 mmol/L (136-145)
[2022-08-27 11:12] LABS: Alanine Aminotransferase 37 U/L (12-78); Aspartate Amino Transferase 47 U/L (14-36); Blood Urea Nitrogen 17 mg/dl (7-17); Creatinine Clearance Estimated 112 mL/min (50-200); Estimated Glomerular Filt Rate 117 ml/min (>60); GFR (African American) 141 ML/MIN (>60)
[2022-08-27 11:13] LABS: Alkaline Phosphatase 271 U/L (38-126); Anion Gap 13.7 mEq/L (5-15); Bilirubin,Total 0.8 mg/dl (0.2-1.3); Calcium 8.1 mg/dl (8.4-10.2); Carbon Dioxide 22 mmol/L (22.0-30.0); Glucose 84 mg/dl (74-100); Magnesium 1.6 mg/dl (1.6-2.3); Phosphorous 3.3 mg/dl (2.5-4.5); Triglycerides 100 mg/dl (30-150)
[2022-08-27 11:46] LABS: Eosinophils % 4 % (0-3); Lymphocytes % 10 % (10-50); Microcytosis 2+; Monocytes % 2 % (2-9); Neutrophils % 82 % (42-76); Total Cells Counted 50
[2022-08-27 11:47] LABS: Anisocytosis 1+; Hypochromasia 1+; Platelet Estimate Normal
[2022-08-27 11:48] LABS: Ovalocytes 1+
== END 2022-08-27 11:06 | disposition home or self-care (01) ==
LOC: INF 10:33
PROVIDERS: PCP Internal Medicine; Visit Provider Internal Medicine
DX: Z45.2 Encounter for adjustment and management of vascular access device (principal); K51.019 Ulcerative (chronic) pancolitis with unspecified complications; K91.2 Postsurgical malabsorption, not elsewhere classified; Z78.9 Other specified health status
CPT/HCPCS: 36592; 80053; 83735; 84100; 84478; 85007; 85025

== ENCOUNTER → 2022-09-06 12:16 | Outpatient (CLI) | payer MEDICAID, SELFPAY | PROVIDERS: Visit Provider Internal Medicine | DX: K91.2 Postsurgical malabsorption, not elsewhere classified (principal); K51.90 Ulcerative colitis, unspecified, without complications; R78.81 Bacteremia ==

== ENCOUNTER 2022-12-06 15:06 | Outpatient (CLI) | payer MEDICAID, SELFPAY ==
[2022-12-06 15:17] VITALS: BMI 20.3
[2022-12-06 15:51] LABS: Basophils % 0.5 % (0.1-2.0); Eosinophils # 0.2 K/mm3 (0.0-0.4); Eosinophils % 2.8 % (0.1-12.0); Hematocrit 31.8 % (37.0-47.0); Hemoglobin 9.8 g/dL (12.2-16.2); Lymphocytes # 1.8 K/mm3 (0.7-4.5); Lymphocytes % 24.8 % (10-50); Mean Corpuscular Hemoglobin 22.4 pg (27.0-31.2); Mean Corpuscular Volume 72.3 fl (81-99); Mean Platelet Volume 9.2 fl (7.4-10.4); Monocytes # 0.4 K/mm3 (0.1-1.0); Monocytes % 5.5 % (1.7-9.3); Neutrophils # 4.7 K/mm3 (1.8-7.8); Neutrophils % 66.4 % (37.0-80.0); Platelet Count 154 K/mm3 (142-424); Red Blood Count 4.39 M/mm3 (4.20-5.40); Red Cell Distribution Width 16.6 % (11.5-17.5); White Blood Count 7.1 K/mm3 (4.8-10.8)
[2022-12-06 16:00] LABS: Triglycerides 92 mg/dl (30-150)
[2022-12-06 16:04] LABS: Chloride 94 mmol/L (98-107); Potassium 4.2 mmoL/L (3.5-5.1); Sodium 136 mmol/L (136-145)
[2022-12-06 16:06] LABS: Blood Urea Nitrogen 26 mg/dl (7-17); Creatinine Clearance Estimated 112 mL/min (50-200); Estimated Glomerular Filt Rate 117 ml/min (>60); GFR (African American) 141 ML/MIN (>60)
[2022-12-06 16:07] LABS: Alanine Aminotransferase 39 U/L (12-78); Albumin Level 4.1 g/dl (3.5-5.0); Albumin/Globulin Ratio 0.9 (1.1-1.8); Alkaline Phosphatase 314 U/L (38-126); Anion Gap 16.2 mEq/L (5-15); Aspartate Amino Transferase 48 U/L (14-36); Bilirubin,Total 0.6 mg/dl (0.2-1.3); Calcium 8.8 mg/dl (8.4-10.2); Carbon Dioxide 30 mmol/L (22.0-30.0); Globulin 4.6 g/dL (1.3-3.2); Glucose 79 mg/dl (74-100); Magnesium 2.1 mg/dl (1.6-2.3); Phosphorous 3.9 mg/dl (2.5-4.5); Total Protein,Serum 8.7 g/dl (6.3-8.2)
[2022-12-08 08:05] LABS: Prealbumin 30 mg/dL (14-35)
== END 2022-12-06 16:10 | disposition home or self-care (01) ==
LOC: INF 15:06
PROVIDERS: PCP Family Medicine; Visit Provider Internal Medicine
DX: E43 Unspecified severe protein-calorie malnutrition (principal); Z45.2 Encounter for adjustment and management of vascular access device
CPT/HCPCS: 36592; 80053; 83735; 84100; 84134; 84478; 85025

== ENCOUNTER → 2022-12-10 19:01 | Outpatient (CLI) | payer MEDICAID, SELFPAY ==
[2022-12-10 19:24] LABS: Chloride 93 mmol/L (98-107); Sodium 134 mmol/L (136-145)
[2022-12-10 19:25] LABS: Potassium 4.2 mmoL/L (3.5-5.1)
[2022-12-10 19:27] LABS: Alanine Aminotransferase 42 U/L (12-78); Alkaline Phosphatase 569 U/L (38-126); Anion Gap 20.2 mEq/L (5-15); Aspartate Amino Transferase 62 U/L (14-36); Bilirubin,Total 0.7 mg/dl (0.2-1.3); Blood Urea Nitrogen 28 mg/dl (7-17); Carbon Dioxide 25 mmol/L (22.0-30.0); Estimated Glomerular Filt Rate 65 ml/min (>60); GFR (African American) 78 ML/MIN (>60)
[2022-12-10 19:28] LABS: Albumin Level 4.2 g/dl (3.5-5.0); Calcium 8.4 mg/dl (8.4-10.2); Globulin 4.4 g/dL (1.3-3.2); Glucose 104 mg/dl (74-100); Magnesium 2.1 mg/dl (1.6-2.3); Total Protein,Serum 8.6 g/dl (6.3-8.2); Triglycerides 192 mg/dl (30-150)
[2022-12-10 19:32] LABS: Basophils % 0.2 % (0.1-2.0); Eosinophils # 0.1 K/mm3 (0.0-0.4); Eosinophils % 1.4 % (0.1-12.0); Hematocrit 32.1 % (37.0-47.0); Lymphocytes # 1.9 K/mm3 (0.7-4.5); Lymphocytes % 25.9 % (10-50); Mean Corpuscular HGB Conc 31.2 g/dL (31.8-35.4); Mean Corpuscular Hemoglobin 21.9 pg (27.0-31.2); Mean Platelet Volume 9.5 fl (7.4-10.4); Monocytes # 0.4 K/mm3 (0.1-1.0); Monocytes % 5.3 % (1.7-9.3); Neutrophils # 4.9 K/mm3 (1.8-7.8); Neutrophils % 67.3 % (37.0-80.0); Platelet Count 157 K/mm3 (142-424); Red Blood Count 4.58 M/mm3 (4.20-5.40); Red Cell Distribution Width 16.4 % (11.5-17.5); White Blood Count 7.3 K/mm3 (4.8-10.8)
== END ==
PROVIDERS: PCP Family Medicine; Visit Provider Internal Medicine
DX: K91.2 Postsurgical malabsorption, not elsewhere classified (principal); K51.90 Ulcerative colitis, unspecified, without complications
CPT/HCPCS: 80053; 83735; 84100; 84478; 85025

== ENCOUNTER → 2023-01-06 18:56 | Outpatient (CLI) | payer MEDICAID, SELFPAY ==
[2023-01-06 19:24] LABS: Basophils % 0.2 % (0.1-2.0); Eosinophils # 0.2 K/mm3 (0.0-0.4); Eosinophils % 2.3 % (0.1-12.0); Hematocrit 31.8 % (37.0-47.0); Hemoglobin 9.9 g/dL (12.2-16.2); Lymphocytes # 1.4 K/mm3 (0.7-4.5); Lymphocytes % 17.4 % (10-50); Mean Corpuscular HGB Conc 31.2 g/dL (31.8-35.4); Mean Corpuscular Hemoglobin 21.7 pg (27.0-31.2); Mean Corpuscular Volume 69.4 fl (81-99); Mean Platelet Volume 8.4 fl (7.4-10.4); Monocytes # 0.1 K/mm3 (0.1-1.0); Monocytes % 1.3 % (1.7-9.3); Neutrophils # 6.5 K/mm3 (1.8-7.8); Neutrophils % 78.9 % (37.0-80.0); Platelet Count 186 K/mm3 (142-424); Red Blood Count 4.58 M/mm3 (4.20-5.40); Red Cell Distribution Width 16.3 % (11.5-17.5); White Blood Count 8.3 K/mm3 (4.8-10.8)
[2023-01-06 19:25] LABS: Chloride 100 mmol/L (98-107); Sodium 138 mmol/L (136-145)
[2023-01-06 19:27] LABS: Alanine Aminotransferase 44 U/L (12-78); Aspartate Amino Transferase 57 U/L (14-36); Blood Urea Nitrogen 27 mg/dl (7-17); Estimated Glomerular Filt Rate 64 ml/min (>60); GFR (African American) 78 ML/MIN (>60)
[2023-01-06 19:28] LABS: Albumin Level 3.9 g/dl (3.5-5.0); Albumin/Globulin Ratio 0.8 (1.1-1.8); Alkaline Phosphatase 486 U/L (38-126); Bilirubin,Total 0.8 mg/dl (0.2-1.3); Calcium 8.8 mg/dl (8.4-10.2); Carbon Dioxide 28 mmol/L (22.0-30.0); Globulin 4.9 g/dL (1.3-3.2); Glucose 96 mg/dl (74-100); Magnesium 2.1 mg/dl (1.6-2.3); Total Protein,Serum 8.8 g/dl (6.3-8.2); Triglycerides 136 mg/dl (30-150)
== END ==
PROVIDERS: PCP Internal Medicine; Visit Provider Internal Medicine
DX: K91.2 Postsurgical malabsorption, not elsewhere classified (principal); K51.90 Ulcerative colitis, unspecified, without complications; R78.81 Bacteremia
CPT/HCPCS: 80053; 83735; 84100; 84478; 85025

== ENCOUNTER → 2023-02-01 18:48 | Outpatient (CLI) | payer MEDICAID, SELFPAY ==
[2023-02-01 19:22] LABS: Basophils % 0.6 % (0.1-2.0); Eosinophils # 0.1 K/mm3 (0.0-0.4); Hematocrit 28.8 % (37.0-47.0); Hemoglobin 8.9 g/dL (12.2-16.2); Lymphocytes # 2.3 K/mm3 (0.7-4.5); Lymphocytes % 52.4 % (10-50); Mean Corpuscular HGB Conc 30.8 g/dL (31.8-35.4); Mean Corpuscular Volume 71.5 fl (81-99); Mean Platelet Volume 7.7 fl (7.4-10.4); Monocytes # 0.2 K/mm3 (0.1-1.0); Monocytes % 3.4 % (1.7-9.3); Neutrophils # 1.8 K/mm3 (1.8-7.8); Neutrophils % 41.6 % (37.0-80.0); Platelet Count 256 K/mm3 (142-424); Red Blood Count 4.03 M/mm3 (4.20-5.40); Red Cell Distribution Width 17.6 % (11.5-17.5); White Blood Count 4.4 K/mm3 (4.8-10.8)
[2023-02-01 19:25] LABS: MANUAL DIFFERENTIAL MANUAL DIFFERENTIAL (MANUAL DIFF)
[2023-02-01 19:36] LABS: Alanine Aminotransferase 40 U/L (12-78); Albumin Level 4.8 g/dl (3.5-5.0); Albumin/Globulin Ratio 1.1 (1.1-1.8); Alkaline Phosphatase 236 U/L (38-126); Anion Gap 14.5 mEq/L (5-15); Aspartate Amino Transferase 55 U/L (14-36); Bilirubin,Total 0.2 mg/dl (0.2-1.3); Blood Urea Nitrogen 28 mg/dl (7-17); Calcium 8.9 mg/dl (8.4-10.2); Carbon Dioxide 33 mmol/L (22.0-30.0); Chloride 99 mmol/L (98-107); Estimated Glomerular Filt Rate 83 ml/min (>60); GFR (African American) 101 ML/MIN (>60); Globulin 4.2 g/dL (1.3-3.2); Glucose 77 mg/dl (74-100); Magnesium 1.9 mg/dl (1.6-2.3); Phosphorous 4.4 mg/dl (2.5-4.5); Potassium 3.5 mmoL/L (3.5-5.1); Sodium 143 mmol/L (136-145); Triglycerides 229 mg/dl (30-150)
[2023-02-01 20:04] LABS: Eosinophils % 1 % (0-3); Hypochromasia 2+; Lymphocytes % 58 % (10-50); Monocytes % 2 % (2-9); Neutrophils % 39 % (42-76); Platelet Estimate Normal; Total Cells Counted 100
[2023-02-01 20:05] LABS: Microcytosis 2+; Ovalocytes 2+
== END ==
LOC: LAB.DROPOF 18:50
PROVIDERS: PCP Internal Medicine; Visit Provider Internal Medicine
DX: K91.2 Postsurgical malabsorption, not elsewhere classified (principal); K51.90 Ulcerative colitis, unspecified, without complications; R78.81 Bacteremia
CPT/HCPCS: 80053; 83735; 84100; 84478; 85007; 85025

== ENCOUNTER → 2023-02-08 18:36 | Outpatient (CLI) | payer MEDICAID, SELFPAY ==
[2023-02-08 19:01] LABS: Basophils % 0.1 % (0.1-2.0); Eosinophils # 0.1 K/mm3 (0.0-0.4); Eosinophils % 2.2 % (0.1-12.0); Hematocrit 28.5 % (37.0-47.0); Hemoglobin 8.8 g/dL (12.2-16.2); Lymphocytes # 2.4 K/mm3 (0.7-4.5); Lymphocytes % 48.7 % (10-50); Mean Corpuscular HGB Conc 30.7 g/dL (31.8-35.4); Mean Corpuscular Hemoglobin 22.4 pg (27.0-31.2); Mean Corpuscular Volume 72.9 fl (81-99); Mean Platelet Volume 8.8 fl (7.4-10.4); Monocytes # 0.1 K/mm3 (0.1-1.0); Monocytes % 2.8 % (1.7-9.3); Neutrophils # 2.2 K/mm3 (1.8-7.8); Neutrophils % 46.2 % (37.0-80.0); Platelet Count 202 K/mm3 (142-424); Red Blood Count 3.91 M/mm3 (4.20-5.40); White Blood Count 4.8 K/mm3 (4.8-10.8)
[2023-02-08 19:27] LABS: Alanine Aminotransferase 32 U/L (12-78); Albumin Level 4.3 g/dl (3.5-5.0); Alkaline Phosphatase 180 U/L (38-126); Anion Gap 13.6 mEq/L (5-15); Aspartate Amino Transferase 40 U/L (14-36); Bilirubin,Total 0.3 mg/dl (0.2-1.3); Blood Urea Nitrogen 26 mg/dl (7-17); Calcium 8.7 mg/dl (8.4-10.2); Carbon Dioxide 33 mmol/L (22.0-30.0); Chloride 99 mmol/L (98-107); Estimated Glomerular Filt Rate 97 ml/min (>60); GFR (African American) 117 ML/MIN (>60); Globulin 4.1 g/dL (1.3-3.2); Glucose 76 mg/dl (74-100); Magnesium 1.8 mg/dl (1.6-2.3); Phosphorous 4.2 mg/dl (2.5-4.5); Potassium 3.6 mmoL/L (3.5-5.1); Sodium 142 mmol/L (136-145); Total Protein,Serum 8.4 g/dl (6.3-8.2); Triglycerides 96 mg/dl (30-150)
== END ==
PROVIDERS: PCP Internal Medicine; Visit Provider Internal Medicine
DX: K91.2 Postsurgical malabsorption, not elsewhere classified (principal); K51.90 Ulcerative colitis, unspecified, without complications; R78.81 Bacteremia
CPT/HCPCS: 80053; 83735; 84100; 84478; 85025

== ENCOUNTER → 2023-02-15 18:43 | Outpatient (CLI) | payer MEDICAID, SELFPAY ==
[2023-02-15 19:14] LABS: Basophils % 0.3 % (0.1-2.0); Eosinophils # 0.2 K/mm3 (0.0-0.4); Eosinophils % 3.6 % (0.1-12.0); Hematocrit 30.2 % (37.0-47.0); Hemoglobin 9.7 g/dL (12.2-16.2); Lymphocytes # 2.2 K/mm3 (0.7-4.5); Lymphocytes % 46.7 % (10-50); Mean Corpuscular Hemoglobin 22.3 pg (27.0-31.2); Mean Corpuscular Volume 69.7 fl (81-99); Mean Platelet Volume 8.7 fl (7.4-10.4); Monocytes # 0.2 K/mm3 (0.1-1.0); Monocytes % 3.5 % (1.7-9.3); Neutrophils # 2.1 K/mm3 (1.8-7.8); Platelet Count 242 K/mm3 (142-424); Red Blood Count 4.34 M/mm3 (4.20-5.40); Red Cell Distribution Width 16.3 % (11.5-17.5); White Blood Count 4.6 K/mm3 (4.8-10.8)
[2023-02-15 19:29] LABS: Alanine Aminotransferase 46 U/L (12-78); Albumin Level 4.8 g/dl (3.5-5.0); Alkaline Phosphatase 217 U/L (38-126); Anion Gap 15.5 mEq/L (5-15); Aspartate Amino Transferase 67 U/L (14-36); Bilirubin,Total 0.6 mg/dl (0.2-1.3); Blood Urea Nitrogen 28 mg/dl (7-17); Calcium 9.1 mg/dl (8.4-10.2); Carbon Dioxide 34 mmol/L (22.0-30.0); Chloride 92 mmol/L (98-107); Estimated Glomerular Filt Rate 83 ml/min (>60); GFR (African American) 101 ML/MIN (>60); Globulin 4.9 g/dL (1.3-3.2); Glucose 90 mg/dl (74-100); Magnesium 1.9 mg/dl (1.6-2.3); Phosphorous 4.2 mg/dl (2.5-4.5); Potassium 3.5 mmoL/L (3.5-5.1); Sodium 138 mmol/L (136-145); Total Protein,Serum 9.7 g/dl (6.3-8.2); Triglycerides 90 mg/dl (30-150)
== END ==
PROVIDERS: PCP Internal Medicine; Visit Provider Internal Medicine
DX: K91.2 Postsurgical malabsorption, not elsewhere classified (principal); K51.90 Ulcerative colitis, unspecified, without complications; R78.81 Bacteremia
CPT/HCPCS: 80053; 83735; 84100; 84478; 85025

== ENCOUNTER → 2023-02-22 20:22 | Outpatient (CLI) | payer MEDICAID, SELFPAY ==
[2023-02-22 21:10] LABS: Basophils % 0.2 % (0.1-2.0); Eosinophils # 0.1 K/mm3 (0.0-0.4); Eosinophils % 1.1 % (0.1-12.0); Hematocrit 29.7 % (37.0-47.0); Hemoglobin 9.5 g/dL (12.2-16.2); Lymphocytes # 1.2 K/mm3 (0.7-4.5); Lymphocytes % 22.3 % (10-50); Mean Corpuscular HGB Conc 32.1 g/dL (31.8-35.4); Mean Corpuscular Hemoglobin 22.5 pg (27.0-31.2); Mean Corpuscular Volume 70.3 fl (81-99); Mean Platelet Volume 9.6 fl (7.4-10.4); Monocytes # 0.2 K/mm3 (0.1-1.0); Monocytes % 3.7 % (1.7-9.3); Neutrophils % 72.7 % (37.0-80.0); Platelet Count 196 K/mm3 (142-424); Red Blood Count 4.22 M/mm3 (4.20-5.40); Red Cell Distribution Width 16.4 % (11.5-17.5); White Blood Count 5.5 K/mm3 (4.8-10.8)
[2023-02-22 21:18] LABS: Chloride 97 mmol/L (98-107); Sodium 138 mmol/L (136-145)
[2023-02-22 21:21] LABS: Alanine Aminotransferase 44 U/L (12-78); Alkaline Phosphatase 229 U/L (38-126); Aspartate Amino Transferase 51 U/L (14-36); Bilirubin,Total 0.6 mg/dl (0.2-1.3); Blood Urea Nitrogen 25 mg/dl (7-17); Carbon Dioxide 28 mmol/L (22.0-30.0); Estimated Glomerular Filt Rate 83 ml/min (>60); GFR (African American) 101 ML/MIN (>60)
[2023-02-22 21:22] LABS: Albumin Level 4.2 g/dl (3.5-5.0); Calcium 9.2 mg/dl (8.4-10.2); Globulin 4.1 g/dL (1.3-3.2); Glucose 77 mg/dl (74-100); Magnesium 1.9 mg/dl (1.6-2.3); Phosphorous 5.3 mg/dl (2.5-4.5); Total Protein,Serum 8.3 g/dl (6.3-8.2); Triglycerides 80 mg/dl (30-150)
== END ==
PROVIDERS: PCP Internal Medicine; Visit Provider Internal Medicine
DX: K91.2 Postsurgical malabsorption, not elsewhere classified (principal); K51.90 Ulcerative colitis, unspecified, without complications; R78.81 Bacteremia
CPT/HCPCS: 80053; 83735; 84100; 84478; 85025